=== PATIENT | female | born 1995 | race Caucasian/White ===

== ENCOUNTER 2025-01-06 02:38 | Day surgery (SDC) | payer OTHER, SELFPAY ==
[2024-12-30 11:09] VITALS: BMI 35.5
--- NOTE | 2024-12-30 11:15 | PC.NURSE ---
Report to the Outpatient Waiting Room, entrance under the green pavilion located off [facility], at time _0730__ on date _01/06/25_. Planned Procedure Time: _929_.? Time changes happen often and if your time is changed the preop area will call you the afternoon before. - You and your visitor will be asked to self-screen and do not enter if you have any COVID symptoms. Please call surgeon if you need to reschedule. - A mask is optional within the hospital at this time. Patients may have clear liquids (water, carbonated beverages, clear teas, apple juice) until 3 hours prior to surgery with a maximum of 20 ounces. - No food from midnight until time of surgery and no smoking, or chewing tobacco (or any form of nicotine). No chewing gum, candy or mints. - Infants may have breast milk until 4 hours before surgery, infant formula 6 hours prior to surgery. - Children will be allowed to drink immediately following surgery.? If applicable, please bring a bottle or sippy cup to assist with drinking. Juice, water, soda, and popsicles are readily available.? For infants on formula, please bring formula the day of surgery.? Pacifiers are allowed. Take only the following medications with a SIP of water on the morning of surgery: NONE DO NOT STOP ANY OF YOUR OTHER PRESCRIPTION MEDICATIONS PRIOR TO SURGERY EXCEPT THE FOLLOWING Hold all vitamins and supplements for 3 days per anesthesiologist. Medications to discontinue per physician Date to take last dose Please no make-up, nail lao, hairspray, perfume, deodorant, or body powder the day of surgery.? No jewelry (including any body piercings) or valuables the day of surgery, leave them at home.? Please take a shower or bath the night before, or the morning of, surgery with an antibacterial soap.? Wear comfortable, loose fitting clothing.? Children are encouraged to wear pajamas. - Jewelry must be removed prior to entering the operating room.? Rings and piercings that are not removed may be cut off. - The hospital will not accept responsibility for valuables.? - Please leave all valuables, including medications, at home the day of surgery. If you are going home after surgery, a licensed regional truck driver must drive you home.? - NO public transportation without another adult if you receive anesthesia. - We recommend that an adult stay with you for 24 hours following discharge. - We also recommend that you do not drive, make important decision, drink alcoholic beverages, or take any drugs that were not prescribed by your health care provider for at least 24 hours after your discharge time. For Pediatric surgeries, we recommend two adults accompany the child home. Follow any additional instructions given to you from your surgeon. Telephone instructions given to and asked if any additional questions and then verbalized understanding. Patient advised to call surgeon office or pre surgery nurse liaison [phone] if any additional questions.
--- NOTE | 2024-12-30 11:20 | PC.NURSE ---
Report to the Outpatient Waiting Room, entrance under the green pavilion located off [facility], at time 0730_ on date 01/06/25 __. Planned Procedure Time: _0930_.? Time changes happen often and if your time is changed the preop area will call you the afternoon before. - You and your visitor will be asked to self-screen and do not enter if you have any COVID symptoms. Please call surgeon if you need to reschedule. - A mask is optional within the hospital at this time. Patients may have clear liquids (water, carbonated beverages, clear teas, apple juice) until 3 hours prior to surgery with a maximum of 20 ounces. - No food from midnight until time of surgery and no smoking, or chewing tobacco (or any form of nicotine). No chewing gum, candy or mints. - Infants may have breast milk until 4 hours before surgery, infant formula 6 hours prior to surgery. - Children will be allowed to drink immediately following surgery.? If applicable, please bring a bottle or sippy cup to assist with drinking. Juice, water, soda, and popsicles are readily available.? For infants on formula, please bring formula the day of surgery.? Pacifiers are allowed. Take only the following medications with a SIP of water on the morning of surgery: __NONE DO NOT STOP ANY OF YOUR OTHER PRESCRIPTION MEDICATIONS PRIOR TO SURGERY EXCEPT THE FOLLOWING Hold all vitamins and supplements for 3 days per anesthesiologist. Medications to discontinue per physician SEMIGLUTIDE Date to take last dose 12/29/24 Please no make-up, nail mohawk, hairspray, perfume, deodorant, or body powder the day of surgery.? No jewelry (including any body piercings) or valuables the day of surgery, leave them at home.? Please take a shower or bath the night before, or the morning of, surgery with an antibacterial soap.? Wear comfortable, loose fitting clothing.? Children are encouraged to wear pajamas. - Jewelry must be removed prior to entering the operating room.? Rings and piercings that are not removed may be cut off. - The hospital will not accept responsibility for valuables.? - Please leave all valuables, including medications, at home the day of surgery. If you are going home after surgery, a licensed solid waste truck driver must drive you home.? - NO public transportation without another adult if you receive anesthesia. - We recommend that an adult stay with you for 24 hours following discharge. - We also recommend that you do not drive, make important decision, drink alcoholic beverages, or take any drugs that were not prescribed by your health care provider for at least 24 hours after your discharge time. For Pediatric surgeries, we recommend two adults accompany the child home. Follow any additional instructions given to you from your surgeon. Telephone instructions given to _PATIENT _and asked if any additional questions and then verbalized understanding. Patient advised to call surgeon office or pre surgery nurse liaison [phone] if any additional questions.
[2025-01-06] VITALS (8 sets, daily range): BP systolic 99–130; BP diastolic 57–83; PULSE 84–93; RESP 16–20; TEMP 36.1–36.6; O2SAT 94–98; BMI 35.5
--- OUTSIDE RECORDS SUMMARY | 2025-01-06 02:42 | XMS_ITS | Encounter Summary ---
Author Organization [facility] Address [address] [place] [address] Phone Care Team Providers Care Senior Sharepoint Developer Name Role Phone Xenia Stringer APRN, MANAGER SYSTEMS Primary Care Provider Mitchell Merchant Primary Care Provider [phone] Alessandra Chapa APRN, MANAGER SYSTEMS Unavailable Reason for Visit * Reason Comments Medication Refill Encounter Details Date Type Department Care Team (Late st Contact Info) Description 12/06/2021 Refill [facility] - Primary Care - [place] [address] [place] [address] Xenia Stringer APRN, MANAGER SYSTEMS [address] [place] [address] Medication Refill Social History Tobacco Use Types Packs/Day Years Used Date Smoking Tobacco: Every Day Cigarettes 1 8.2 Started: 11/01/2016 Smokeless Tobacco: Never Comments:vaps Alcohol Use Standard Drinks/Week Comments Yes 0 (1 standard drink = 0.6 oz pur e alcohol) 2x monthly; liq PHQ-2 Answer Date Recorded Total Score - Questions 1-9 12 06/02 Sexually Active Control Partners Comments Not Currently Condom Male Comments No Sex and Gender Information Value Date Recorded Sex Assigned at Not on file Legal Sex Female 11:55 PM CDT Gender Identity Not on file Sexual Orientation Not on file 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 Requested Prescriptions Pending Prescriptions Disp Refills acyclovir (ZOVIRAX) 400 MG Tablet [Pharmacy Med Name: ACYCLOVIR 400MG TABLETS] 60 Tablet 6 Sig: TAKE 1 TABLET BY MOUTH TWICE DAILY Not Delegated - Herpes Agents Protocol Failed - 12/06/2021 6:13 AM Failed - This refill cannot be delegated Passed - Visit with relevant provider in past 12 months or upcoming 90 days Recent Visits Date Type Provider Dept 03/15/21 Office Visit Xenia Stringer APRN, MANAGER SYSTEMS [facility] Showing recent visits within past 365 days and meeting all other requirements Future Appointments No visits were found meeting these conditions. Showing future appointments within next 90 days and meeting all other requirements documented in this encounter Plan of Treatment Upcoming Encounters Date Type Department Care Team (Late st Contact Info) Description 11/09/2025 3:45 PM CDT Office Visit [facility] - Primary Care - [place] [address] [place] [address] Mitchell Merchant, LOREN [address] [place] [address] documented as of this encounter Visit Diagnoses Diagnosis Herpes simplex Herpes simplex without mention of complication documented in this encounter Additional Health Concerns Assessment Noted Time PHQ-9 Depression Total Score: 12 06/21/ 020 10:00 AM PRIVATE INVESTIGATOR SURVEILLANCE documented as of this encounter Care Teams Senior Sharepoint Developer Relationship Specialty Start Date End Date Xenia Stringer APRN, MANAGER SYSTEMS [address] [place], [place] [id number] PCP - General Advanced Practice Nurse 05/16/19 Mitchell Merchant, PAC [address] [place] [address] PCP - General Physician Chief Underwriter 04/18/23 Alessandra Chapa APRN, MANAGER SYSTEMS [address] [place] [address] Nurse Practitioner Advanced Practice Nurse 08/22/22 documented as of this encounter
--- OUTSIDE RECORDS SUMMARY | 2025-01-06 02:42 | XMS_ITS | Encounter Summary ---
Author Organization [facility] Address [address] [place] [address] Phone Care Team Providers Care Certified Solid Waste Facility Operator Name Role Phone Xenia Stringer APRN, DIE EQUIPMENT OPERATOR Primary Care Provider Mitchell Merchant Primary Care Provider [phone] Alessandra Chapa APRN, DIE EQUIPMENT OPERATOR Unavailable Reason for Visit * Reason Comments Medication Refill Encounter Details Date Type Department Care Team (Late st Contact Info) Description 10/19/2022 Refill [facility] - Primary Care - [place] [address] [place] [address] Xenia Stringer APRN, DIE EQUIPMENT OPERATOR [address] [place] [address] Medication Refill Social History Tobacco Use Types Packs/Day Years Used Date Smoking Tobacco: Every Day Cigarettes 1 8.2 Started: 11/01/2016 Smokeless Tobacco: Never Comments:vaps Alcohol Use Standard Drinks/Week Comments Yes 0 (1 standard drink = 0.6 oz pur e alcohol) 2x monthly; liq PHQ-2 Answer Date Recorded Total Score - Questions 1-9 9 08/31 Sexually Active Control Partners Comments Not Currently Condom Male Comments No Sex and Gender Information Value Date Recorded Sex Assigned at Not on file Legal Sex Female 11:55 PM CDT Gender Identity Not on file Sexual Orientation Not on file 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 No / Unsure 10/03/2022 3:04 PM CDT documented as of this encounter Miscellaneous Notes * Telephone Encounter - Abigail Ramirez RN - 10/19/2022 10:15 AM CDT Medication discontinued 09/27/22 documented in this encounter Plan of Treatment Upcoming Encounters Date Type Department Care Team (Late st Contact Info) Description 11/09/2025 3:45 PM CDT Office Visit [facility] - Primary Care - [place] [address] [place] [address] Mitchell Merchant PAC [address] [place] [address] documented as of this encounter Visit Diagnoses Not on filedocumented in this encounter Additional Health Concerns Assessment Noted Time PHQ-9 Depression Total Score: 9 09/28/19 23 3:00 PM CDT documented as of this encounter Care Teams Certified Solid Waste Facility Operator Relationship Specialty Start Date End Date Xenia Stringer APRN, DIE EQUIPMENT OPERATOR [address] [place], [place] [id number] PCP - General Advanced Practice Nurse 05/16/19 Mitchell Merchant PAC [address] [place] [address] PCP - General Physician Conveyor Installer 04/18/23 Alessandra Chapa APRN, DIE EQUIPMENT OPERATOR [address] [place] [address] Nurse Practitioner Advanced Practice Nurse 08/22/22 documented as of this encounter
--- OUTSIDE RECORDS SUMMARY | 2025-01-06 02:42 | XMS_ITS | Encounter Summary ---
Author Organization [facility] Address [address] [place] [address] Phone Care Team Providers Care Collective Bargaining Specialist Name Role Phone Xenia Stringer APRN, ASSISTANT PROPERTY MANAGER Primary Care Provider Mitchell Merchant Primary Care Provider [phone] Alessandra Chapa APRN, ASSISTANT PROPERTY MANAGER Unavailable Reason for Visit * Reason Comments Medication Refill Encounter Details Date Type Department Care Team (Late st Contact Info) Description 02/09/2022 Refill [facility] - Primary Care - [place] [address] [place] [address] Xenia Stringer APRN, ASSISTANT PROPERTY MANAGER [address] [place] [address] Medication Refill Social History Tobacco [...] 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 Requested Prescriptions Pending Prescriptions Disp Refills albuterol 108 (90 Base) MCG/ACT Aerosol Solution [Pharmacy Med Name: ALBUTEROL HFA INH(200 PUFFS)18GM] 18 g 0 Sig: INHALE 2 PUFFS BY MOUTH EVERY 4 HOURS NEEDED FOR WHEEZING OR COUGH Short Acting Inhaled Beta-Agonists Protocol Passed - 02/09/2022 12:20 PM Passed - Visit with relevant provider in past 12 months or upcoming 90 days Recent Visits Date Type Provider Dept 03/15/21 Office Visit Xenia Stringer APRN, ASSISTANT PROPERTY MANAGER [facility] Showing recent visits within past 365 days and meeting all other requirements Future Appointments No visits were found meeting these conditions. Showing future appointments within next 90 days and meeting all other requirements documented in this encounter Plan of Treatment Upcoming Encounters Date Type Department Care Team (Late st Contact Info) Description 11/09/2025 3:45 PM CDT Office Visit [facility] - Primary Care - [place] [address] [place] [id number] Mitchell Merchant, PAC [address] [place] [address] documented as of this encounter Visit Diagnoses Diagnosis SOB (shortness of breath) Shortness of breath Wheezing documented in this encounter Additional Health Concerns Assessment Noted Time PHQ-9 Depression Total Score: 12 020 10:00 AM MANAGER DIALYSIS documented as of this encounter Care Teams Collective Bargaining Specialist Relationship Specialty Start Date End Date Xenia Stringer APRN, ASSISTANT PROPERTY MANAGER [address] [place] [place] [id number] PCP - General Advanced Practice Nurse 05/16/19 Mitchell Merchant, PAC [address] [place] [address] PCP - General Physician Supervisor Tumblers 04/18/23 Alessandra Chapa, INVESTMENTS MANAGER, ASSISTANT PROPERTY MANAGER [address] [place] [address] Nurse Practitioner Advanced Practice Nurse 08/22/22 documented as of this encounter
--- OUTSIDE RECORDS SUMMARY | 2025-01-06 02:42 | XMS_ITS | Encounter Summary ---
Author Organization [facility] Address [address] [place] [address] Phone Care Team Providers Care Contracting Manager Name Role Phone Xenia Stringer APRN, STONE DRESSER Primary Care Provider Mitchell Merchant Primary Care Provider [phone] Alessandra Chapa APRN, STONE DRESSER Unavailable Reason for Visit * Reason Comments Medication Refill Encounter Details Date Type Department Care Team (Late st Contact Info) Description 02/08/20[facility] [address] [place] [address] Alessandra Chapa APRN, STONE DRESSER [address] [place] [address] Medication Refill Social History Tobacco Use Types [...] 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 No / Unsure 02/03/2021 1:14 PM CDT documented as of this encounter Plan of Treatment Upcoming Encounters Date Type Department Care Team (Late st Contact Info) Description 11/09/2025 3:45 PM CDT Office Visit [facility] - Primary Care - [place] [address] [place] [address] Mitchell Merchant PAC [address] [place] [address] documented as of this encounter Visit Diagnoses Diagnosis SOB (shortness of breath) Shortness of breath Wheezing documented in this encounter Additional Health Concerns Assessment Noted Time PHQ-9 Depression Total Score: 12 020 10:00 AM CUTTER TENDER documented as of this encounter Care Teams Contracting Manager Relationship Specialty Start Date End Date Xenia Stringer APRN, STONE DRESSER [address] [place], [place] [id number] PCP - General Advanced Practice Nurse 05/16/19 Mitchell Merchant PAC [address] [place] [address] PCP - General Physician Arcade Technician 04/18/23 Alessandra Chapa APRN, STONE DRESSER [address] [place] [address] Nurse Practitioner Advanced Practice Nurse 08/22/22 documented as of this encounter
--- OUTSIDE RECORDS SUMMARY | 2025-01-06 02:42 | XMS_ITS | Encounter Summary ---
Author Organization [facility] Address [address] [place] [address] Phone Care Team Providers Care Patient Care Technician Name Role Phone Xenia Stringer APRN, LEAD DATA ENTRY OPERATOR Primary Care Provider Mitchell Merchant Primary Care Provider Alessandra Chapa APRN, LEAD DATA ENTRY OPERATOR Unavailable Reason for Visit * Reason Comments Medication Refill Encounter Details Date Type Department Care Team (Late st Contact Info) Description 01/08/2021 Refill [facility] - Primary Care - [place] [address] [place] [address] Xenai Stringer APRN, LEAD DATA ENTRY OPERATOR [address] [place] [address] Medication Refill Social History Tobacco Use Types Packs/Day Years Used Date Smoking Tobacco: Every Day Cigarettes 1 8.2 Started: 11/01/2016 Smokeless Tobacco: Never Comments:vaps Alcohol Use Standard Drinks/Week Comments Yes 0 (1 standard drink = 0.6 oz pur e alcohol) rarely once a month PHQ-2 Answer Date Recorded Total Score - Questions 1-9 12 06/02 Sexually Active Control Partners Comments Not Currently Condom Male Comments No Sex and Gender Information Value Date Recorded Sex Assigned at Not on file Legal Sex Female 11:55 PM CDT Gender Identity Not on file Sexual Orientation Not on file 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 Requested Prescriptions Pending Prescriptions Disp Refills atomoxetine (STRATTERA) 25 MG Capsule [Pharmacy Med Name: ATOMOXETINE 25MG CAPSULES] 90 Capsule 0 Sig: Take 1 Capsule by mouth daily. [email or web address] Not Delegated - Psychiatry: Stimulants/ADHD Failed - 01/10/2021 1:29 PM Failed - This refill cannot be delegated Passed - Valid encounter within last 6 months Past Office Visits Recent Outpatient Visits 4 months ago Disturbed concentration [facility] Xenia Stringer APN, LEAD DATA ENTRY OPERATOR 6 months ago Tinea cruris [facility] Xenia Stringer APN, LEAD DATA ENTRY OPERATOR 10 months ago Abnormal facial hair [facility] Xenia Stringer APN, LEAD DATA ENTRY OPERATOR 11 months ago SOB (shortness of breath) [facility] Brett Delgado PAC 1 year ago Vaginal discharge [facility] Xenia Stringer APN, LEAD DATA ENTRY OPERATOR Upcoming Appointments SOCIAL MEDIA SPECIALIST - Recent and Past Visits Recent Visits Date Type Provider Dept 08/30/20 Office Visit Xenia Stringer APN, CNP [facility] 06/21/20 Office Visit Xenia Stringer APN, CNP [facility] 03/01/20 Office Visit Xenia Stringer APN, ELEUTERIO [facility] 01/28/20 Office Visit Brett Delgado, PAC [facility] Showing recent visits within past 460 days with a meds authorizing provider and meeting all other requirements Future Appointments No visits were found meeting these conditions. Showing future appointments within next 90 days with a meds authorizing provider and meeting all other requirements Passed - Last BP in normal range BP Readings from Last 1 Encounters: 08/30/20 122/78 documented in this encounter Plan of Treatment Upcoming Encounters Date Type Department Care Team (Late st Contact Info) Description 11/09/2025 3:45 PM CDT Office Visit [facility] - Primary Care - [place] [address] [place] [phone] Mitchell Merchant PAC [address] [place] [address] documented as of this encounter Visit Diagnoses Not on filedocumented in this encounter Additional Health Concerns Assessment Noted Time PHQ-9 Depression Total Score: 12 020 10:00 AM HEEL SEWER documented as of this encounter Care Teams Patient Care Technician Relationship Specialty Start Date End Date Xenia Stringer APRN, LEAD DATA ENTRY OPERATOR [address] [place], [place] [id number] PCP - General Advanced Practice Nurse 05/16/19 Mitchell Merchant PAC [address] [place] [address] PCP - General Physician Refrigeration Lead 04/18/23 Alessandra Chapa APRN, LEAD DATA ENTRY OPERATOR [address] [place] [address] Nurse Practitioner Advanced Practice Nurse 08/22/22 documented as of this encounter
--- OUTSIDE RECORDS SUMMARY | 2025-01-06 02:42 | XMS_ITS | Data Portability ---
Author Organization [facility] Address [address] [place] [address] Care Team Providers Care Transfer Iron Operator Name Role Phone [email or web address] Primary Care Provider Assessment No assessment recorded. Plan of Treatment Reminders Order Date Submit Date Provider Last Modified By Organization Details Last Modified Time Details Appointments SURG Salpingec odell 2024 09:30A Tio LEVI MD Not available Not available Not available SURG POST OP 2024 03:00P Tio LEVI MD Not available Not available Not available Lab None recorded. Referral None recorded. Procedures None recorded. Surgeries None recorded. Imaging None recorded. Medication Orders Slynd 4 mg (28) tablet 2023 07 024 [id number], [address] [place] [address], [id number], 01/07/2024 16:48:04 Patient TargetsNo targets recorded. Patient InstructionsNo instructions recorded. Reason for Referral None Reported. Results Created Date Observation Date Name Description Value Unit Range Abnormal Flag Note LastModifiedBy Organization Detail LastModifiedTime 04/09/2004/09/2024 WOMEN 'S HEALT H SWAB PLUS, [place] bacterial vaginosis (bv), tma Positi ve negati ve abnormal Not Available [facility] (Lab) [address], [place], [address], 04/11/2024 07:38:52 04/09/2004/09/2024 WOMEN 'S HEALT H SWAB PLUS, [place] anita species, tma Negati ve negati ve Not Available [facility] (Lab) [address] [place], [address], 04/11/2024 07:38:52 04/09/20 24 04/09/2024 [facility] anita glabrata, tma Negati ve negati ve Not Available [facility] (Lab) [address] [place], [address], 04/11/2024 07:38:52 04/09/20 24 04/09/2024 [facility] trichomonas vaginalis, tma Negati ve negati ve Not Available [facility] (Lab) [address], [place], [address], 04/11/2024 07:38:52 04/09/20 24 04/09/2024 [facility] chlamydia trachomatis, PCR Negati ve negati ve Not Available [facility] (Lab) [address] [place], [address], 04/11/2024 07:38:52 04/09/20 24 04/09/2024 [facility] [place] neisseria gonorrhoeae, PCR Negati ve negati ve Bacte rial vagin osis detec ts the follo wing bacte elton assoc iated with bacte rial vagin osis (BV): Lacto bacil an (L. gasse ri, L. crisp atus and L. jense landen), Gardn erell a vagin luciano, and Atopo bium vagin ae. A singl e quali tativ e resul t is repor marko base on instr ument softw are to deter mine BV posit enrike or negat enrike statu s. The Karlie da speci es group tests for C. albic ans, C. tropi calis , C. parap davina is, C. dubli niens is. Testi ng is perfo rmed using the Trans cript ion Media marko Ampli ficat ion metho d. Tests for Karlie da glabr frankie, Trich omona s vagin luciano, Chlam ydia trach omati s, and Neiss eria gonor rhoea e are also inclu ded in this panel . Not Available [facility] (Lab) [address], [place], [address], 04/11/2024 07:38:52 Result Notes None recorded. Medical Equipment None Reported. Allergies No known drug allergies Medications Name Sig Start Date Stop Date Status Note LastModified by Organization Details LastModified Time fluconazole 150 mg tablet TAKE 1 TABLET BY MOUTH AT ONSET OF SYMPTOMS. MAY REPEAT DOSE IN 2-3 DAYS IF STILL PRESENT 10/27 completed Not Available Not Available Not Available benzonatate 200 mg capsule TAKE 1 CAPSULE BY MOUTH THREE TIMES DAILY NEEDED FOR COUGH 01/06 completed Not Available Not Available Not Available metronidazo le 0.75 % (37.5 mg/5 gram) vaginal gel Insert 1 applicato rful every day by vaginal route for 5 days. 04/14 completed Not Available Not Available Not Available topiramate 25 mg tablet TAKE 1 TABLET BY MOUTH TWICE DAILY 10/27 completed Not Available Not Available Not Available metronidazo le 500 mg tablet TAKE 1 TABLET BY MOUTH TWICE DAILY FOR 7 DAYS 10/27 completed Not Available Not Available Not Available fluocinonid e 0.05 % topical ointment APPLY TO AFFECTED AREA TWICE DAILY ON HANDS active Not Available Not Available No t Available acyclovir 400 mg tablet TAKE 1 TABLET BY MOUTH TWICE DAILY active Not Available Not Available No t Available sulfamethox azole 800 mg-trimetho prim 160 mg tablet TAKE 1 TABLET BY MOUTH TWICE DAILY FOR 7 DAYS 01/06 completed Not Available Not Available Not Available triamcinolo ne acetonide 0.1 % topical cream APPLY SMALL AMOUNT TOPICALLY TO THE AFFECTED AREA TWICE DAILY FOR 14 DAYS active Not Available Not Available No t Available econazole nitrate 1 % topical cream APPLY TO RASH UNDER BREASTS AND GROIN FOLDS ONCE TO TWICE DAILY active Not Available Not Available No t Available triamcinolo ne acetonide 0.1 % topical ointment APPLY EXTERNALL Y TO THE AFFECTED AREA ON CHEST THINLY TWICE DAILY active Not Available Not Available No t Available mometasone 0.1 % topical ointment APPLY TO THE AFFECTED AREA ON HANDS TWICE DAILY active Not Available Not Available No t Available albuterol sulfate HFA 90 mcg/actuati on aerosol inhaler INHALE 2 PUFFS BY MOUTH EVERY 4 HOURS NEEDED FOR WHEEZING OR COUGH active Not Available Not Available No t Available sertraline 50 mg tablet TAKE 1 TABLET BY MOUTH DAILY active Not Available Not Available No t Available doxycycline hyclate 100 mg tablet TAKE 1 TABLET BY MOUTH EVERY 12 HOURS 10/27 completed Not Available Not Available Not Available Aurovela 24 Fe 1 mg-20 mcg (24)/75 mg (4) tablet 10/27 completed Not Available Not Available Not Available Slynd 4 mg (28) tablet TAKE 1 TABLET BY MOUTH EVERY DAY 2024 active Not Available Not Available Not Avai hernan Vitals Date Recorded Body height Body mass index (BMI) Body weight Systolic And Diastolic Provider Name and Address Organization Details Last Updated DateTime 10/27/2024 157.48 cm 38.2 kg/m2 46236.81 g 121/73 mm[Hg] Bibi Heck [facility] 10/27/2024 17:37:14 Date Recorded Body height Body mass index (BMI) Body weight Systolic And Diastolic Provider Name and Address Organization Details Last Updated DateTime 01/07/2024 157.48 cm 40.1 kg/m2 21227.73 g 135/85 mm[Hg] Annemarie Rubio [facility] 01/07/2024 15:38:40 Date Recorded Body height Body mass index (BMI) Body weight Systolic And Diastolic Provider Name and Address Organization Details Last Updated DateTime 04/09/2024 157.48 cm 41.2 kg/m2 342483 g 127/85 mm[Hg] Ana Laura Snow [facility] 04/09/2024 16:25:05 Social History Question Answer Notes LastModified by Organizat ion Details LastModified Time Tobacco Smoking Status Never Smoker Annemarie Rubio [facility] 01/07/2024 14:09:41 Are You Blind Or Do You Have Difficulty Seeing? No [email or web address] Information n ot available 01/14/2024 What Is Your Level Of Caffeine Consumption? Moderate [email or web address] Information not available 01/14/2024 How Much Tobacco Do You Chew? None [email or web address] Information not available 01/14/2024 In The 14 Days Before Symptom Onset, Have You Had Close Contact With A Laboratory-confirm ed COVID-19 While That Case Was Ill? No Information n ot available 01/07/2024 In The 14 Days Before Symptom Onset, Have You Had Close Contact With A Person Who Is Under Investigation For COVID-19 While That Person Was Ill? No Information not available 01/07/2024 Have You Been To An Area Known To Be High Risk For COVID-19? No Information not available 01/07/2024 Are You Deaf Or Do You Have Serious Difficulty Hearing? No [email or web address] Information not available 01/14/2024 What Type Of Diet Are You Following? REGULAR [email or web address] Information n ot available 01/14/2024 What Is The Highest Grade Or Level Of School You Have Completed Or The Highest Degree You Have Received? [id number] [email or web address] Information not available 01/14/2024 Are There Any Guns Present In Your Home? No [email or web address] Information not available 01/14/2024 Do You Use Protection During Sex? No [email or web address] Information not available 01/14/2024 Do You Use Your Seat Belt Or Car Seat Routinely? Yes [email or web address] Information not available 01/14/2024 Do You Have Smoke And Carbon Monoxide Detectors In Your Home? Yes [email or web address] Information not available 01/14/2024 How Much Tobacco Do You Smoke? No Information not available 01/14/2024 Do You Use Sunscreen Routinely? Yes [email or web address] Information not available 01/14/2024 Have You Used IV Drugs? Yes Information not available 01/14/2024 Sex: Unknown Functional Status Question Answer Note LastModified by Organizat ion Details LastModified Time Do you use any illicit or recreational drugs? No Information not available 01/14/2024 What is your level of alcohol consumption? None [email or web address] Information not available 01/14/2024 Are you able to walk? 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 None [email or web address] Information not available 01/14/2024 Mental Status Question Answer Note LastModified by Organization D etails LastModified Time Do you feel stressed (tense, restless, nervous, or anxious, or unable to sleep at night)? [id number] [email or web address] Information not available 01/14/2024 Family History Relationship Description Onset Age of this Age Resolved Age Notes LastModified by Organization Details LastModified Time Father Diabetes mellitus [email or web address] Not available 2023 15:42:10 Medical History Condition Response Anxiety Disorder Y Other Y Headaches Y Depression/ depression Y Gynecological History Statement/Question Response Date of Last Mammogram Date of LMP 11/27/2023 N Was last menstrual period normal Y STIs/STDs Y Date of control 10/10/2023 Date of Last Colonoscopy BCPs Desired Control Method Sterilizati on Abnormal Pap N On BCP's at Conception? N Colposcopy HPV Vaccine Y Duration of Flow (days) 6 Current Control Method BCPs Age at First Child 26 Are cycles usually normal Y Sexually Active? Y Menses Monthly Y Date of DEXA bone scan Age of first menstrual cycle 14 Date of Last Pap Smear Sexual Problems? N LMP Approximate N Obstetrics History GPAL:G 3 P 0 0 1 2 Type Value Spontaneous 1 Living 2 Total 3 Past Encounters Encounter ID Performer Location Encounter Start Date Encounter Closed Date Diagnosis/Indication Diagnosis SNOMED-CT Code Diagnosis ICD10 Code Diagnosis Note [id number] DAYRON Ramsay [place] [address] [address] 01/07/2024 15:29:15 01/07/2024 16:55:04 Contraception care management 240728193 Z30.9 Detailed health hx obtained and reviewedal l BC options discusseds he would like to start slynd Discussed all control options in great detail. Pt would like to start POP. She is aware of the risks and benefits. She is aware it is not effective for control the first month. She is also aware of the importance of taking at the same time every day. Encouraged use of condoms as the pill does not protect against STI's. Will return in 3 months for med check. Consent was read and signed. Pt verbalized understand ing. Pt aware of potential decrease effectiven ess of POP in combinatio n with topiramate , recommend condom use. records release signed for pap hxSTI screen declinedRT C for WWE/med check in 3-4 months Time spent in visit is a total of 20 mins with at least 50% of visit consisting of counseling and review of plan of care. [id number] Collins Levi MD [place] [address] [address] 04/09/2024 15:58:39 04/09/2024 17:05:12 Contraception care management 309429205 Z30.9 28-year-ol d female who presents for follow-up on oral contracept enrike start. She is taking Slynd. She is doing well. She is tolerating it well. She is not having any bleeding. She will continue. She was given a prescripti on for 1 year. [id number] Collins Levi MD [place] [address] [address] 10/27/2024 16:30:27 10/28/2024 10:11:57 Sterilization education [id number] Z30.09 This patient presents for female sterilizat ion. The patient desires tubal ligation. She is certain that she no longer wants to be fertile. We discussed sterilizat ion in detail. I described the procedure to the patient in detail. I informed her that we remove the tubes entirely in a. We discussed alternativ es. The patient knows they are highly effective reversible options. She understand s that the Salpingect lindsay n is permanent. We discussed failure rate. She understand s there is reported failure rate to salpingect lindsay.. As described salpingect lindsay and removal of the entire tube. I discussed the reduction in ovarian cancer risk. The patient understand s and is ready to proceed with laparoscop ic bilateral salpingect lindsay.. She return for informed consent process. Her surgery will be scheduled. Health Concerns Section Related Observation LastModified by Organization Detai ls LastModified Time None Recorded Concern Status LastModified by Organization Details LastModified Time None Recorded Advance Directives Directive None Recorded Payers Insurance Date Sequence Insurance Name Policy Number Policy Childs Covered Member ID Childs Member ID Guarantor Name 01/04/2025 1 [facility] (MEDICAID HMO) [id number] Alley Nicholas [id number] Alley Nicholas Notes Date Note Type Note Provider Name and Address Organization Details Recorded Time 01/07/2024 text/html 28yo [id number] ents for BC consults/p vaginal delivery 08/2023formula feedingcurrently on an OCP - would like to discuss all her options todaypap smear last 2022 - no h/o abnormal paps medical hx : migraines w/out aura DAYRON Ramsay [address], [place], [address], [facility] 01/07/2024 16:51:42 04/09/2024 text/html Vaginal/Vulvar ProblemReported bypatient.Notes:28-ye ar-old female who presents for follow-up on oral contraceptive start. She is taking Slynd. She is doing well. She is tolerating it well. She is not having any bleeding. She will continue. She was given a prescription for 1 year. Collins Levi MD [address], [place], [address], [facility] 04/09/2024 16:59:32 10/27/2024 text/html This patient pre sents for female sterilization. The patient desires tubal ligation. She is certain that she no longer wants to be fertile. We discussed sterilization in detail. I described the procedure to the patient in detail. I informed her that we remove the tubes entirely in a. We discussed alternatives. The patient knows they are highly effective reversible options. She understands that the Salpingectomy n is permanent. We discussed failure rate. She understands there is reported failure rate to salpingectomy.. As described salpingectomy and removal of the entire tube. I discussed the reduction in ovarian cancer risk. The patient understands and is ready to proceed with laparoscopic bilateral salpingectomy.. She return for informed consent process. Her surgery will be scheduled. Collins Levi MD [address], [place], [address], [facility] 10/27/2024 18:18:39 OBGyn Episode Ob Episode Information Episode Created Date Number of Fetuses Patient Bloodtype Patient rh Status Prepregnancy Weight lbs Domestic Partner Domestic Partner Phone Father Name Medical Assisting Program Director Status 01/07/20 24 1 CLOSED Fetus Data First Name Last Name Admitted to NICU Weight (g) Sex Living Outcome Pediatric Complications Fetus ID Race Codes Race Delivery Type F Full Term [id number] Vaginal Delivery Obie Calculation Initial Obie Date Initial Exam Date Initial Exam Provider Initial Ultrasound Date Last Menstrual Period Date Ultra Sound Weeks Gestation 0 Eighteen To Twenty Week Obie Update Ultra Sound Date Fundal Height At Umbil Quickening Date Ultra Sound Latest Weeks Gestation Final Obie Confirmed By Final Obie Confirmed Date Final Obie Date Ultra Sound Latest Days Gestation 0 0 Menstrual History Last Menstrual Date Menses Monthly On Bcp Conception Prior Menses Frequency Hcg Plus Date Menarche Onset Age Delivery Information Delivery Date Delivery Type Labor Anesthesia Weeks Gestation Incision Type Labor Labor Length Hrs Delivered By Post Complications Tubal Sterilization Discharge Date Comments 2 Discharge Information Feeding Method Contraceptive Method Maternal HG B and HCT Levels Ob Episode Information Episode Created Date Number of Fetuses Patient Bloodtype Patient rh Status Prepregnancy Weight lbs Domestic Partner Domestic Partner Phone Father Name Medical Assisting Program Director Status 01/07/20 24 1 CLOSED Fetus Data First Name Last Name Admitted to NICU Weight (g) Sex Living Outcome Pediatric Complications Fetus ID Race Codes Race Delivery Type , Spontane ous [id number] Obie Calculation Initial Obie Date Initial Exam Date Initial Exam Provider Initial Ultrasound Date Last Menstrual Period Date Ultra Sound Weeks Gestation 0 Eighteen To Twenty Week Obie Update Ultra Sound Date Fundal Height At Umbil Quickening Date Ultra Sound Latest Weeks Gestation Final Obie Confirmed By Final Obie Confirmed Date Final Obie Date Ultra Sound Latest Days Gestation 0 0 Menstrual History Last Menstrual Date Menses Monthly On Bcp Conception Prior Menses Frequency Hcg Plus Date Menarche Onset Age Delivery Information Delivery Date Delivery Type Labor Anesthesia Weeks Gestation Incision Type Labor Labor Length Hrs Delivered By Post Complications Tubal Sterilization Discharge Date Comments 5 Discharge Information Feeding Method Contraceptive Method Maternal HG B and HCT Levels Ob Episode Information Episode Created Date Number of Fetuses Patient Bloodtype Patient rh Status Prepregnancy Weight lbs Domestic Partner Domestic Partner Phone Father Name Medical Assisting Program Director Status 01/07/20 24 1 CLOSED Fetus Data First Name Last Name Admitted to NICU Weight (g) Sex Living Outcome Pediatric Complications Fetus ID Race Codes Race Delivery Type M Full Term [id number] Vaginal Delivery Obie Calculation Initial Obie Date Initial Exam Date Initial Exam Provider Initial Ultrasound Date Last Menstrual Period Date Ultra Sound Weeks Gestation 0 Eighteen To Twenty Week Obie Update Ultra Sound Date Fundal Height At Umbil Quickening Date Ultra Sound Latest Weeks Gestation Final Obie Confirmed By Final Obie Confirmed Date Final Obie Date Ultra Sound Latest Days Gestation 0 0 Menstrual History Last Menstrual Date Menses Monthly On Bcp Conception Prior Menses Frequency Hcg Plus Date Menarche Onset Age Delivery Information Delivery Date Delivery Type Labor Anesthesia Weeks Gestation Incision Type Labor Labor Length Hrs Delivered By Post Complications Tubal Sterilization Discharge Date Comments 4 shoulder dystocia Discharge Information Feeding Method Contraceptive Method Maternal HG B and HCT Levels
--- OUTSIDE RECORDS SUMMARY | 2025-01-06 02:42 | XMS_ITS | Continuity of Care Document ---
Author Organization [facility] Address [address] [place] [address] Phone Care Team Providers Care Roads And Parking Lots Sweeper Operator Name Role Phone Unavailable Unavailable Unavailable Allergies, Adverse Reactions, Alerts Substance Reaction Status Criticality No Known Allergies Active No Inform ation Medications Medication Instructions Dosage Effective Dates (start - stop) Status Comments Tessalon Perles 100 mg capsule take 1 capsule by oral route 3 times every day as needed - Active amoxicillin 500 mg tablet take 1 tablet by oral route every 12 hours 500 MG - No Longer Active Procedures Procedure Date OFFICE/OUTPATIENT VISIT, EST Advance Directives Directive Yes / No Effective Date File Name No Information Encounters Encounter Description Practice Location Reason(s) For Visit Diagnoses Date Provider Providers Copied on Encounter OFFICE/OUTPAT IENT VISIT, [facility], [address] [place] [address], [address], tel:[phone] [place] COUGH (chief complaint)P USS POCKETS ON THROAT (chief complaint)F EVER (chief complaint) Acute bronchitis 4 No Information Family History Family Member Type Diagnosis Age At Onset No Information Payers Payer name Insurance type Covered libertarian ID Authoriza tion(s) No Information Social History Type Description Quantity Date Captured Comments Alcohol Use Details Unknown Caffeine Use Details Unknown Tobacco Use Status Never smoked tobacco 2013 Smoking Status Never smoker Non-Smoking Tobacco Use Details : No Details Available : No Details Available Sex Female Chief Complaint And Reason For Visit From encounter dated '06/23/2014 08:38'. COUGH (chief complaint). Description: Onset: 2 weeks ago. Severity: 5. The patient describes the cough as productive (of clear sputum). Associated symptoms include chills, cough, fatigue, hoarseness and sore throat. PUSS POCKETS ON THROAT (chief complaint). Description: The symptoms began 2 weeks ago and generallylasts 2 Weeks. The symptoms are reported as being moderate. The symptoms occur constantly. Patient has been dealing with white spots on her throat for 2 weeks now. FEVER (chief complaint). Description: Associated symptoms include cough. Additional information: Patient has never taken her temp she just thinks she had a fever. Reason For Referral Reason For Referral No Information History Of Present Illness Encounter Date Complaint History Of Prese nt Illness PUSS POCKETS ON THROAT The sympt oms began 2 weeks ago and generally lasts 2 Weeks. The symptoms are reported as being moderate. The symptoms occur constantly. Patient has been dealing with white spots on her throat for 2 weeks now. COUGH Onset: 2 weeks a go. Severity: 5. The patient describes the cough as productive (of clear sputum). Associated symptoms include chills, cough, fatigue, hoarseness and sore throat. FEVER Associated sympt oms include cough. Additional information: Patient has never taken her temp she just thinks she had a fever. Functional Status Date Functional Assessmen t No Information Instructions Date Instruction Additional Infor mation see plan detail Related to Acute bronchitis Assessments Type Assessment Date assessment Acute bronchitis impression amoxicillin 500mg po bid for 10 days. f/u inext week if not resolving Mental Status Date Cognitive Assessment Orientation - [place] ed to time, place, person, situation. Patient Care Teams Name Effective Dates (start - stop) Status Members No Information
--- OUTSIDE RECORDS SUMMARY | 2025-01-06 02:42 | XMS_ITS | Encounter Summary ---
Author Organization [facility] Address [address] [place] [address] Phone Care Team Providers Care Back Tender Insulation Board Name Role Phone Xenia Stringer APRN, REAL ESTATE PORTFOLIO MANAGER Primary Care Provider Mitchell Merchant Primary Care Provider [phone] Alessandra Chapa APRN, REAL ESTATE PORTFOLIO MANAGER Unavailable Reason for Visit * Reason Comments Medication Refill Encounter Details Date Type Department Care Team (Late st Contact Info) Description 02/12/2021 Refill [facility] - Primary Care - [place] [address] [place] [address] Xenia Stringer APRN, REAL ESTATE PORTFOLIO MANAGER [address] [place] [address] Medication Refill Social History Tobacco [...] Industry Job Start Date Job End Date 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 Not on file Not on file Not on file COVID-19 Exposure Response Date Recorded In the last month, have you been in contact with someone who was confirmed or suspected to have Coronavirus / COVID-19? No / Unsure 02/03/2021 1:14 PM CDT documented as of this encounter Miscellaneous Notes * Telephone Encounter - Rica Aguirre RN - 02/14/2021 1:23 PM CDT The original prescription was discontinued on 02/03/2021 by Marlyn Mcmillan PAC for the following reason: Med List Clean Up documented in this encounter Plan of Treatment Upcoming Encounters Date Type Department Care Team (Late st Contact Info) Description 11/09/2025 3:45 PM CDT Office Visit [facility] - Primary Care - [place] [address] [place] [address] Mitchell Merchant PAC [address] [place] [address] documented as of this encounter Visit Diagnoses Not on filedocumented in this encounter Additional Health Concerns Assessment Noted Time PHQ-9 Depression Total Score: 12 06/21/ 020 10:00 AM LADIES SUIT OPERATOR documented as of this encounter Care Teams Back Tender Insulation Board Relationship Specialty Start Date End Date Xenia Stringer APRN, REAL ESTATE PORTFOLIO MANAGER [address] [place] [address] PCP - General Advanced Practice Nurse 05/16/19 Mitchell Merchant PAC [address] [place] [address] PCP - General Physician Public Health Outreach Worker 04/18/23 Alessandra Chapa APRN, REAL ESTATE PORTFOLIO MANAGER [address] [place] [address] Nurse Practitioner Advanced Practice Nurse 08/22/22 documented as of this encounter
--- OUTSIDE RECORDS SUMMARY | 2025-01-06 02:42 | XMS_ITS | Encounter Summary ---
Author Organization [facility] Address [address] [place] [address] Phone Care Team Providers Care Food Safety Scientist Name Role Phone Xenia Stringer APRN, TOY ASSEMBLER WOOD Primary Care Provider Mitchell Merchant Primary Care Provider Alessandra Chapa APRN, TOY ASSEMBLER WOOD Unavailable Reason for Visit * Reason Comments Medication Refill Encounter Details Date Type Department Care Team (Late st Contact Info) Description 10/08/2022 Refill [facility] - Primary Care - [place] [address] [place] [address] Xenia Stringer APRN, TOY ASSEMBLER WOOD [address] [place] [address] Medication Refill Social History Tobacco [...] 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 No / Unsure 10/03/2022 3:04 PM CDT documented as of this encounter Miscellaneous Notes * Telephone Encounter - Rica Aguirre RN - 10/09/2022 9:20 AM CDT The original prescription was discontinued on 09/27/2022 by Xenia Stringer APRN, ELEUTERIO for the following reason documented in this encounter Plan of Treatment Upcoming Encounters Date Type Department Care Team (Late st Contact Info) Description 11/09/2025 3:45 PM CDT Office Visit [facility] - Primary Care - [place] [address] [place] [address] Mitchell Merchant PAC [address] [place] [address] documented as of this encounter Visit Diagnoses Not on filedocumented in this encounter Additional Health Concerns Assessment Noted Time PHQ-9 Depression Total Score: 9 09/28/19 23 3:00 PM CDT documented as of this encounter Care Teams Food Safety Scientist Relationship Specialty Start Date End Date Xenia Stringer APRN, TOY ASSEMBLER WOOD [address] [place] [address] PCP - General Advanced Practice Nurse 05/16/19 Mitchell Merchant PAC [address] [place] [address] PCP - General Physician Tongue And Groove Machine Operator 04/18/23 Alessandra Chapa APRN, TOY ASSEMBLER WOOD [address] [place] [address] Nurse Practitioner Advanced Practice Nurse 08/22/22 documented as of this encounter
--- OUTSIDE RECORDS SUMMARY | 2025-01-06 02:42 | XMS_ITS | Encounter Summary ---
Author Organization [facility] Address [address] 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 on file Not on file documented as of this encounter Plan of Treatment Upcoming Encounters Date Type Department Care Team (Late st Contact Info) Description 11/09/2025 3:45 PM CDT Office Visit [facility] - Primary Care - [place] [address] [address] Mitchell Merchant PAC [address] [place] [address] documented as of this encounter Visit Diagnoses Diagnosis SOB (shortness of breath) Shortness of breath Wheezing documented in this encounter Additional Health Concerns Assessment Noted Time PHQ-9 Depression Total Score: 12 020 10:00 AM LINE CLOSER documented as of this encounter Care Teams Syrup Filterer Relationship Specialty Start Date End Date Xenia Stringer APRN, TOOL/DIE MAKER [address] [place], [place] [id number] PCP - General Advanced Practice Nurse 05/16/19 Mitchell Merchant, PAC [address] [place] [address] PCP - General Physician Etiquette Coach 04/18/23 Alessandra Chapa APRN, TOOL/DIE MAKER [address] [place] [address] Nurse Practitioner Advanced Practice Nurse 08/22/22 documented as of this encounter
--- OUTSIDE RECORDS SUMMARY | 2025-01-06 02:42 | XMS_ITS | Encounter Summary ---
Author Organization [facility] Address [address] 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 No / Unsure 10/03/2022 3:04 PM CDT documented as of this encounter Miscellaneous Notes * Telephone Encounter - Mitchell Merchant PAC - 10/30/2022 3:45 PM CDT Rx request approved. * Telephone Encounter - Arabella Vidales RN - 10/30/2022 11:47 AM CDT Medication failed the protocol, provider to review and approve the medication order if appropriate. Requested Prescriptions Pending Prescriptions Disp Refills Phentermine HCl 37.5 MG Tablet [Pharmacy Med Name: PHENTERMINE 37.5MG TABLETS] 30 Tablet Sig: Take 1 Tablet by mouth every morning. Not Delegated - Anorexiants Non-amphetamine Protocol Failed - 10/28/2022 10:21 AM Failed - This refill cannot be delegated Passed - Visit with relevant provider in past 12 months or upcoming 90 days Recent Visits Date Type Provider Dept 09/27/22 Office Visit Xenia Stringer, BENCH LAY OUT TECHNICIAN, SEED PACKER [facility] Showing recent visits within past 365 days and meeting all other requirements Future Appointments No visits were found meeting these conditions. Showing future appointments within next 90 days and meeting all other requirements documented in this encounter Plan of Treatment Upcoming Encounters Date Type Department Care Team (Late st Contact Info) Description 11/09/2025 3:45 PM CDT Office Visit [facility] - Primary Care - [place] [address] [place] [address] Mitchell Merchant PAC [address] [place] [address] documented as of this encounter Visit Diagnoses Diagnosis Obesity (BMI 30-39.9) Obesity, unspecified documented in this encounter Additional Health Concerns Assessment Noted Time PHQ-9 Depression Total Score: 9 09/28/19 23 3:00 PM CDT documented as of this encounter Care Teams Otr Company Driver Relationship Specialty Start Date End Date Xenia Stringer APRN, SEED PACKER [address] [place] [address] PCP - General Advanced Practice Nurse 05/16/19 Mitchell Merchant, PAC [address] [place] [address] PCP - General Physician Prepress Technician 04/18/23 Alessandra Chapa APRN, SEED PACKER [address] [place] [address] Nurse Practitioner Advanced Practice Nurse 08/22/22 documented as of this encounter
--- OUTSIDE RECORDS SUMMARY | 2025-01-06 02:42 | XMS_ITS | Encounter Summary ---
Author Organization [facility] Address [address] [place] [address] Phone Care Team Providers Care Sales Support Assistant Name Role Phone Xenia Stringer APRN, RAILROAD CONSTRUCTION DIRECTOR Primary Care Provider Mitchell Merchant Primary Care Provider Alessandra Chapa APRN, RAILROAD CONSTRUCTION DIRECTOR Unavailable Reason for Visit * Reason Comments Medication Refill Encounter Details Date Type Department Care Team (Late st Contact Info) Description 04/04/2020 Refill [facility] - Primary Care - [place] [address] [place] [address] Xenia Stringer APRN, RAILROAD CONSTRUCTION DIRECTOR [address] [place] [address] Medication Refill Social History Tobacco Use Types Packs/Day Years Used Date Smoking Tobacco: Every Day Cigarettes 1 8.2 Started: 11/01/2016 Smokeless Tobacco: Never Comments:vaps Alcohol Use Standard Drinks/Week Comments Yes 0 (1 standard drink = 0.6 oz pur e alcohol) rarely once a month Sexually Active Control Partners Comments Not Currently Condom Male Comments No Sex and Gender Information Value Date Recorded Sex Assigned at Not on file Legal Sex Female 11:55 PM CDT Gender Identity Not on file Sexual Orientation Not on file Occupation Industry Job Start Date Job End Date [employer]. Not on file Not on file Not on file COVID-19 Exposure Response Date Recorded In the last month, have you been in contact with someone who was confirmed or suspected to have Coronavirus / COVID-19? No / Unsure 03/30/2020 9:46 AM CDT documented as of this encounter Miscellaneous Notes * Telephone Encounter - Maria Dolores Pike RN - 04/06/2020 7:27 AM CDT Medication failed the protocol, provider to review and approve the medication order. Requested Prescriptions Pending Prescriptions Disp Refills traZODone (DESYREL) 50 MG Tablet [Pharmacy Med Name: TRAZODONE 50MG TABLETS] 30 Tab 0 Sig: TAKE 1 TABLET BY MOUTH EVERY NIGHT NEEDED FOR SLEEP Not Delegated - Psychiatry: Antidepressants - Serotonin Reuptake Inhibitor/Antagonist Failed - 04/04/2020 3:36 PM Failed - This refill cannot be delegated Passed - Valid encounter within last 12 months Past Office Visits Recent Outpatient Visits 1 month ago Abnormal facial hair [facility] Xenia Stringer APN, CNP 2 months ago SOB (shortness of breath) [facility] Brett Delgado PAC 10 months ago Vaginal discharge [facility] Xenia Stringer APN, CNP 2 years ago Well woman exam with routine gynecological exam [facility] Gladys Bailey A PAC 2 years ago Elevated liver enzymes [facility] Gladys Bailey A PAC Upcoming Appointments Future Appointments In 4 months Xenia Stringer APN, CNP [facility] SEWER AND CUTTER FINGER BUFF MATERIAL - Recent and Past Visits Recent Visits Date Type Provider Dept 03/01/20 Office Visit Xenia Stringer APN, CNP [facility] 01/28/20 Office Visit Brett Delgado PAC [facility] 05/16/19 Office Visit Xenia Stringer APN, [facility] Showing recent visits within past 460 days with a meds authorizing provider and meeting all other requirements Future Appointments No visits were found meeting these conditions. Showing future appointments within next 90 days with a meds authorizing provider and meeting all other requirements documented in this encounter Plan of Treatment Upcoming Encounters Date Type Department Care Team (Late st Contact Info) Description 11/09/2025 3:45 PM CDT [facility] Visit [facility] - Primary Care - [place] [address] [place] [address] Mitchell Merchant PAC [address] [place] [address] documented as of this encounter Visit Diagnoses Not on filedocumented in this encounter Additional Health Concerns Assessment Noted Time PHQ-9 Depression Total Score: 12 018 3:00 PM CDT documented as of this encounter Care Teams Sales Support Assistant Relationship Specialty Start Date End Date Xenia Stringer APRN, RAILROAD CONSTRUCTION DIRECTOR [address] [place] [address] PCP - General Advanced Practice Nurse 05/16/19 Mitchell Merchant PAC [address] [place] [address] PCP - General Physician Datacap Developer 04/18/23 Alessandra Chapa APRN, RAILROAD CONSTRUCTION DIRECTOR [address] [place] [address] Nurse Practitioner Advanced Practice Nurse 08/22/22 documented as of this encounter
--- OUTSIDE RECORDS SUMMARY | 2025-01-06 02:42 | XMS_ITS | Encounter Summary ---
Author Organization [facility] Address [address] [place] [address] Phone Care Team Providers Care Airframe Technical Officer Name Role Phone Mitchell Merchant Primary Care Provider Alessandra Chapa APRN, RN [facility] Unavailable Reason for Visit * Reason Comments Medication Refill Encounter Details Date Type Department Care Team (Late st Contact Info) Description [facility] - [place] [address] [place] [address] Mitchell Merchant PAC [address] [place] [address] Medication Refill Social History Tobacco Use Types [...] Partners Comments Not Currently Condom Male Comments Yes Sex and Gender Information Value Date Recorded Sex Assigned at Not on file Legal Sex Female 11:55 PM CDT Gender Identity Not on file Sexual Orientation Not on file Occupation Industry Job Start Date Job End Date [employer] Not on file Not on file Not on file documented as of this encounter Miscellaneous Notes * Telephone Encounter - Clarke Mcintosh RN - 09/03/2023 10:59 AM CST Duplicate Request SERVICE DIRECTOR documented in this encounter Plan of Treatment Upcoming Encounters Date Type Department Care Team (Late st Contact Info) Description 11/09/2025 3:45 PM CDT Office Visit [facility] - Primary Care - [place] [address] [place] [address] Mitchell Merchant PAC [address] [place] [address] documented as of this encounter Visit Diagnoses Not on filedocumented in this encounter Additional Health Concerns Assessment Noted Time PHQ-9 Depression Total Score: 9 09/28/19 23 3:00 PM CDT documented as of this encounter Care Teams Airframe Technical Officer Relationship Specialty Start Date End Date Mitchell Merchant PAC [address] [place] [address] PCP - General Physician Finance Teacher 04/18/23 Alessandra Chapa APRN, RN [facility] [address] [place] [address] Nurse Practitioner Advanced Practice Nurse 08/22/22 documented as of this encounter
--- OUTSIDE RECORDS SUMMARY | 2025-01-06 02:42 | XMS_ITS | Encounter Summary ---
Author Organization [facility] Address [address] [place] [address] Phone Care Team Providers Care Vamp Creaser Name Role Phone Mitchell Merchant Primary Care Provider [phone] Alessandra Chapa APRN, TRACK GREASER Unavailable Reason for Visit * Reason Comments Medication Refill Encounter Details Date Type Department Care Team (Late st Contact Info) Description [facility] - [place] [address] [place] [address] Mitchell Merchant PAC [address] [place] [address] Medication Refill Social History Tobacco [...] Industry Job Start Date Job End Date [employer]. Not on file Not on file Not on file documented as of this encounter Miscellaneous Notes * Telephone Encounter - Yaz Meneses, RN - 10/29/2023 9:22 AM CDT Refill requested too soon. documented in this encounter Plan of Treatment Upcoming Encounters Date Type Department Care Team (Late st Contact Info) Description 11/09/2025 3:45 PM CDT Office Visit [facility] - Primary Care - Sh[place] [address] [place] [address] Mitchell Merchant PAC [address] [place] [address] documented as of this encounter Visit Diagnoses Not on filedocumented in this encounter Additional Health Concerns Assessment Noted Time PHQ-9 Depression Total Score: 9 09/28/19 23 3:00 PM CDT documented as of this encounter Care Teams Vamp Creaser Relationship Specialty Start Date End Date Mitchell Merchant PAC [address] [place] [address] PCP - General Physician Tray Service Worker 04/18/23 Alessandra Chapa APRN, TRACK GREASER [address] [place] [address] Nurse Practitioner Advanced Practice Nurse 08/22/22 documented as of this encounter
--- OUTSIDE RECORDS SUMMARY | 2025-01-06 02:42 | XMS_ITS | Encounter Summary ---
Author Organization [facility] Address [address] [place] [address] Phone Care Team Providers Care Third Rail Installer Name Role Phone Xenia Stringer APRN, STEAM HAMMER OPERATOR Primary Care Provider Mitchell Merchant Primary Care Provider [phone] Alessandra Chapa APRN, STEAM HAMMER OPERATOR Unavailable Reason for Visit * Reason Comments Medication Refill Encounter Details Date Type Department Care Team (Late st Contact Info) Description 02/04/2021 Refill [facility] - Primary Care - [place] [address] [place] [address] Xenia Stringer APRN, STEAM HAMMER OPERATOR [address] [place] [address] Medication Refill Social History Tobacco [...] 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 No / Unsure 02/03/2021 1:14 PM CDT documented as of this encounter Miscellaneous Notes * Telephone Encounter - Xenia Stringer APN, CNP - 02/04/2021 1:43 PM CDT [place] prescription monitoring site reviewed. Medication approved. * Telephone Encounter - Myriam Haji RN - 02/04/2021 12:55 PM CDT Transferred to med management team at [facility] * Telephone Encounter - Abigail Ramirez RN - 02/04/2021 12:33 PM CDT Medication failed the protocol, provider to review and approve the medication order if appropriate. Requested Prescriptions Pending Prescriptions Disp Refills traZODone (DESYREL) 50 MG Tablet [Pharmacy Med Name: TRAZODONE 50MG TABLETS] 90 Tablet 0 Sig: TAKE 1 TABLET BY MOUTH AT BEDTIME NEEDED SLEEP Serotonin Modulators (6 Month Refill Only) Protocol Failed - 02/04/2021 12:22 PM Failed - Has an encounter in the past 6 months with a depression or anxiety visit diagnosis Passed - No test in the past 12 months or most recent test was negative Passed - No active on record Passed - Visit with relevant provider in past 6 months or upcoming 90 days Recent Visits Date Type Provider Dept 08/30/20 Office Visit Xenia Stringer APN, CNP [facility] Showing recent visits within past 182 days and meeting all other requirements Future Appointments No visits were found meeting these conditions. Showing future appointments within next 90 days and meeting all other requirements Passed - No PRN Use for Trazodone Passed - Patient has established therapy with Serotonin Modulators for at least 6 months Phentermine HCl 37.5 MG Tablet [Pharmacy Med Name: PHENTERMINE 37.5MG TABLETS] 30 Tablet Sig: TAKE 1 TABLET BY MOUTH EVERY MORNING BEFORE BREAKFAST [facility] Not Delegated - Gastroenterology: Antiobesity Agents Failed - 02/04/2021 12:22 PM Failed - This refill cannot be delegated Passed - Valid encounter within last 6 months Past Office Visits Recent Outpatient Visits 5 months ago Disturbed concentration [facility] Xenia Stringer APN, ELEUTERIO 7 months ago Tinea cruris [facility] Xenia Stringer APN, STEAM HAMMER OPERATOR 11 months ago Abnormal facial hair [facility] Xenia Stringer APN, ELEUTERIO 1 year ago SOB (shortness of breath) [facility] Brett Delgado PAC 1 year ago Vaginal discharge 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 Showing future appointments within next 90 days with a meds authorizing provider and meeting all other requirements Passed - Last BP in normal range BP Readings from Last 1 Encounters: 02/03/21 122/62 documented in this encounter Plan of Treatment Upcoming Encounters Date Type Department Care Team (Late st Contact Info) Description 11/09/2025 3:45 PM CDT Office Visit [facility] [address] [place] [address] Mitchell Merchant, PAC [address] [place] [address] documented as of this encounter Visit Diagnoses Diagnosis Poor sleep documented in this encounter Additional Health Concerns Assessment Noted Time PHQ-9 Depression Total Score: 12 020 10:00 AM COMMUNICATION SPEC documented as of this encounter Care Teams Third Rail Installer Relationship Specialty Start Date End Date Xenia Stringer APRN, STEAM HAMMER OPERATOR [address] [place] [address] PCP - General Advanced Practice Nurse 05/16/19 Mitchell Merchant PAC [address] [place] [address] PCP - General Physician Sales Market Leader 04/18/23 Alessandra Chapa APRN, STEAM HAMMER OPERATOR [address] [place] [address] Nurse Practitioner Advanced Practice Nurse 08/22/22 documented as of this encounter
--- OUTSIDE RECORDS SUMMARY | 2025-01-06 02:42 | XMS_ITS | Clinical Summary ---
Author Organization [facility] Address [address] [place] [address] Care Team Providers Care Coal Crusher Operator Name Role Phone Mitchell Merchant Rylan Primary Care Provider [phone] Source Comments [facility],non-owned Affiliates and Associated Physician Practices is amultiple site organization consisting of ambulatory clinics and hospital sitesin [place], [place], [place] and [place]. This disclosure is being madepursuant to the Care Everywhere program and may not contain all information available regarding this patient. Last updated 18.[facility] Allergies No known active allergies Medications * Be aware that medications may not be up to date on this document. Alwaysverify current medications with the patient. albuterol HFA (Proventil; Ventolin; Proair) 108 (90 Base) MCG/ACT inhaler Inhale 2 (two) puffs by mouth every 4 hours as needed for Wheezing or Cough 4 Active Slynd 4 MG TABS tablet Take 1 (one) tablet by mouth once daily Active sertraline (Zoloft) 50 MG tablet Take 1 (one) tablet by mouth once daily 5 Active acyclovir (Zovirax) 400 MG tablet Take 1 (one) tablet by mouth 2 times daily 4 Active triamcinolone acetonide (Kenalog) 0.1 % cream APPLY SMALL AMOUNT TOPICALLY TO THE AFFECTED AREA TWICE DAILY FOR 14 DAYS 5 Active triamcinolone acetonide (Kenalog) 0.1 % ointmentIndicat ions:Other eczema Apply to affected area on chest thinly bid 454 g 5 Active mometasone (Elocon) 0.1 % ointmentIndicat ions:Other eczema Apply to affected areas on hands BID. 30 day supply. 45 g 5 Active econazole nitrate (Spectazole) 1 % creamIndication s:Intertrigo Apply to rash under breasts and groin folds 1-2 times daily. 30 days supply. 30 g 2 5 Active Active Problems No known active problems Encounters Date Type Department Care Team Description 11/06/2024 3:00 PM CDT Office Visit [facility] - Cosmetic Dermatology [address] [place] [address] Elisabet Abel MD Acanthosis nigricans (Primary Dx); Epidermal cyst; Intertrigo; Other eczema 11/06/2024 Travel from Last 3 Months Social History Tobacco Use Types Packs/Day Years Used Date Smoking Tobacco: Never Smokeless Tobacco: Never Tobacco Cessation:Counseling Given: Not Answered Comments Unknown Sex and Gender Information Value Date Recorded Sex Assigned at Not on file Legal Sex Female 3:37 PM CDT Gender Identity Not on file Sexual Orientation Not on file Last Filed Vital Signs Vital Sign Reading Time Taken Comments Blood Pressure 113/71 10/08/2018 2:18 PM CDT Pulse 60 10/08/2018 2:18 PM CDT Temperature 37 C (98.6 F) 10/08/2018 2:18 PM CDT Respiratory Rate 18 10/08/2018 2:18 PM CDT Oxygen Saturation 96% 10/08/2018 2:18 PM CDT Inhaled Oxygen Concentration - - Weight 68.2 kg (150 lb 4.8 oz) 10/08/2018 2:18 P M CDT Height 160 cm (5' 3) 10/08/2018 2:18 PM CDT Body Mass Index 26.62 10/08/2018 2:18 PM CDT Plan of Treatment Health Maintenance Due Date Last Done Comments HIV SCREENING 12/03/2010 DTAP/TDAP/TD VACCINES (1 - Tdap) 12/03/2014 HEPATITIS B VACCINE (1 of 3 - 19+ 3-dose series) 12/03/2014 PAP SMEAR 01/31/2021 01/31/2018 COVID-19 VACCINE ( season) 2024 02/22/2021, 12/29/2020, 12/08/2020 DEPRESSION SCREENING 07/02/2024 INFLUENZA VACCINE (#1) 2025 , 06/18/2018, 08/07/2017, Additional history exists ZOSTER VACCINE (1 of 2) 12/03/2045 HEPATITIS C SCREENING Completed 10/08/2018 , 10/08/2018, 07/22/2018, Additional history exists HIB VACCINE Aged Out No longer eligi ble based on patient's age to complete this topic HPV VACCINE Aged Out No longer eligi ble based on patient's age to complete this topic MENINGOCOCCAL (Group B) VACCINE SHARED DECISION-MAKING Aged Out No longer eligible based on patient's age to complete this topic MENINGOCOCCAL GROUPS A/C/Y/W VACCINE Aged Out No longer eligible based on patient's age to complete this topic PNEUMOCOCCAL VACCINE Aged Out No long er eligible based on patient's age to complete this topic Insurance [facility] Care Teams Coal Crusher Operator Relationship Specialty Start Date End Date Mitchell Merchant [address] [place] [address] PCP - General 09/15/24
--- OUTSIDE RECORDS SUMMARY | 2025-01-06 02:42 | XMS_ITS | Encounter Summary ---
Author Organization [facility] Address [address] [place] [address] Phone Care Team Providers Care Play Leader Name Role Phone Mitchell Merchant Primary Care Provider Alessandra Chapa APRN, SPORTS BOOK BOARD ATTENDANT Unavailable Reason for Visit * Reason Comments Medication Refill Encounter Details Date Type Department Care Team (Late st Contact Info) Description 08/28/2023 [facility] - [place] [address] [place] [address] Mitchell Merchant PAC [address] [place] [address] Medication Refill Social History Tobacco [...] Industry Job Start Date Job End Date [employer]. Not on file Not on file Not on file documented as of this encounter Miscellaneous Notes * Telephone Encounter - Mitchell Merchant PAC - 08/29/2023 10:45 AM IGNITION MECHANIC Refill approved. TION MECHANIC * Telephone Encounter - Clarke Mcintosh RN - 08/29/2023 9:03 AM CST Medication failed the protocol, provider to review and approve the medication order if appropriate. Requested Prescriptions Pending Prescriptions Disp Refills acyclovir (ZOVIRAX) 400 MG Tablet [Pharmacy Med Name: ACYCLOVIR 400MG TABLETS] 180 Tablet 0 Sig: TAKE 1 TABLET BY MOUTH TWICE DAILY Not Delegated - Herpes Agents Protocol Failed - 08/28/2023 8:08 PM Failed - This refill cannot be delegated Passed - Visit with relevant provider in past 12 months or upcoming 90 days Recent Visits Date Type Provider Dept 04/18/23 Office Visit Mitchell Merchant PAC [facility] 09/27/22 Office Visit Xenia Stringer, INVESTIGATOR FRAUD, SPORTS BOOK BOARD ATTENDANT [facility] Showing recent visits within past 365 days and meeting all other requirements Future Appointments No visits were found meeting these conditions. Showing future appointments within next 90 days and meeting all other requirements TION MECHANIC documented in this encounter Plan of Treatment Upcoming Encounters Date Type Department Care Team (Late st Contact Info) Description 11/09/2025 3:45 PM CDT Office Visit [facility] - Primary Care - [place] [address] [place] [address] Mitchell Merchant PAC [address] [place] [address] documented as of this encounter Visit Diagnoses Not on filedocumented in this encounter Additional Health Concerns Assessment Noted Time PHQ-9 Depression Total Score: 9 09/28/19 23 3:00 PM CDT documented as of this encounter Care Teams Play Leader Relationship Specialty Start Date End Date Mitchell Merchant PAC [address] [place] [address] PCP - General Physician Wood Ski Maker 04/18/23 Alessandra Chapa, INVESTIGATOR FRAUD, SPORTS BOOK BOARD ATTENDANT [address] [place] [address] Nurse Practitioner Advanced Practice Nurse 08/22/22 documented as of this encounter
--- OUTSIDE RECORDS SUMMARY | 2025-01-06 02:42 | XMS_ITS | Clinical Summary ---
Author Organization [facility] Address [address] [place] [address] Phone Care Team Providers Care Software Tools Build Engineer Name Role Phone Mitchell Merchant Primary Care Provider [phone] Alessandra Chapa APRN, HAT CUTTER Unavailable Allergies No known active allergies Medications Slynd 4 MG Tablet Take 1 Tablet by mouth daily. 024 Active SEMAGLUTIDE,0.2 5 OR 0.5MG/DOS, SC by Subcutaneous route. Active triamcinolone (KENALOG) 0.1 % CreamIndication s:Eczema, unspecified type Application Site:Apply a small amount to affected area 2 times per day for 14 days. 45 g 1 025 Active econazole nitrate 1 % Cream Apply to rash under breasts and groin folds 1-2 times daily. 30 days supply. 025 Active mometasone (ELOCON) 0.1 % Ointment Apply to affected areas on hands BID. 30 day supply. 025 Active sertraline (ZOLOFT) 50 MG TabletIndicatio ns:Anxiety and depression TAKE 1 TABLET BY MOUTH DAILY 90 Tablet 025 Active albuterol 108 (90 Base) MCG/ACT Aerosol SolutionIndicat ions:Mild intermittent asthma without complication take 2 Puffs by inhalation every 4 hours as needed for Wheezing or Cough. 36 g 025 Active acyclovir (ZOVIRAX) 400 MG Tablet TAKE 1 TABLET BY MOUTH TWICE DAILY 180 Tablet 025 Active acyclovir (ZOVIRAX) 400 MG Tablet TAKE 1 TABLET BY MOUTH TWICE DAILY 180 Tablet 025 2024 Discontinued albuterol 108 (90 Base) MCG/ACT Aerosol Solution INHALE 2 PUFFS BY MOUTH EVERY 4 HOURS NEEDED FOR WHEEZING OR COUGH 18 g 025 2024 Discontinued albuterol 108 (90 Base) MCG/ACT Aerosol Solution INHALE 2 PUFFS BY MOUTH EVERY 4 HOURS NEEDED FOR WHEEZING OR COUGH 18 g 2 025 2024 Discontinued(R eorder) Active Problems Problem Noted Date Diagnosed Date History of drug abuse 11/02/2023 Eczema 09/27/2022 Mild intermittent asthma without complication Overview (09/27/2022): Last Assessment & Plan: Condition: stable Continue to take medication as prescribed. Reviewed trigger avoidance and reviewed proper use of inhalers and rescue medications. Reviewed concerning signs/symptoms and ER precautions. Follow up in: if symptoms worsen or fail to improve Obesity (BMI 30-39.9) 08/30/2020 Tobacco dependence 08/30/2020 Chronic hepatitis C without hepatic coma 018 Herpes simplex 07/06/2015 Overview (03/01/2020): Note: Unchanged Resolved Problems Problem Noted Date Diagnosed Date Resolved Date Opioid abuse 07/06/2015 11/02/2023 Overview (03/01/2020): Note: Unchanged Encounters Date Type Department Care Team Description 12/31/2024 Refill [facility] - [place] [address] [place] [phone] Mitchell Merchant, PAC Medication Refill 12/15/20[facility] [place] [address] [place] [address] Mitchell Merchant, PAC Medication Refill 11/15/2024 Refill [facility] - [place] [address] [place] [phone] Mitchell Merchant PAC Medication Refill 11/10/2024 Results Follow-Up [facility] - [place] [address] [place] [phone] Mitchell Merchant, LOREN HEPATITIS C RNA QUANT PCR VIRAL LOAD, HEMOGLOBIN A1C W/ ESTIMATED GLUCOSE 11/10/2024 Refill [facility] [place] [phone] Mitchell Merchant PAC Medication Refill 11/07/2024 4:30 PM CDT Lab [facility] [place] [phone] [facility] History of hepatitis C; Acanthosis nigricans Discharge Disposition: Discharged to home or Selfcare 11/07/2024 3:45 PM CDT Office Visit [facility] - [place] [address] [place] [phone] Mitchell Merchant PAC Preventative health care (Adult) (Primary Dx); History of hepatitis C; Acanthosis nigricans; Synovial cyst of left popliteal space Discharge Disposition: Discharged to home or Selfcare 11/06/2024 Travel 10/09/2024 12:40 PM CDT Lab [facility] [place] [address] [facility] Preventative health care (Adult) Discharge Disposition: Discharged to home or Selfcare 10/09/2024 Results Follow-Up [facility] [place] [phone] Mitchell Merchant PAC CMP (COMPREHENSIVE METABOLIC PANEL), LIPID PANEL, CBC WITH AUTO DIFFERENTIAL, THYROID SCREEN WITH REFLEX 10/09/2024 Travel from Last 3 Months Immunizations Immunization Administration Dates Next Due [id number] feliberto MCV4, Unspecif ied Formulation 07/20/2011 Covid-19, Mrna, Lnp-s, Pf, 3 0 Mcg/0.3 Ml Dose ([employer]) 02/22/2021,12/29/2020,12/08/2020 DTAP VACCINE 08/06/1997 DTP Vaccine 02/29/1996 DTP-Hib 1996,06/19/1996 HIB Vaccine (PRP-T) 08/06/1997,02/29/1996 Hepatitis A Vaccine 03/12/2018,08/07/2017,2013 Hepatitis B Vaccine, Pediatric/adolescent 1996,06/19/1996,02/29/1996 Hib Vaccine,unspecified Formulation 08/06/1997,0 02/29/1996 Human Papillomavirus Vaccine (HPV), quadrivalent 08/22/2007,03/21/2007,01/10/2007 Influenza Vaccine, Quadrivalent, PF 06/21/2020,0 08/07/2017 Influenza, Recombinant, Quadrivalent,injectable, Pf 06/18/2018 MMR Vaccine 08/06/1997 OPV 1996,06/19/1996,02/29/1996 Pneumococcal Vaccine Adult - 23 Valent 8 TDAP Vaccine 07/10/2023,,06/18/2018,07/20 Td Vaccine (preservative free) 06/18/2018 Family History Medical History Relation Name Comments No Known Problems Brother 1 No Known Problems Brother 2 Diabetes Father Schizophrenia Father No Known Problems Maternal Grandfather No Known Problems Maternal Grandmother No Known Problems Mother No Known Problems Paternal Grandfather Arthritis Paternal Grandmother Relation Name Status Comments Brother 1 Alive Brother 2 Alive Father Alive Maternal Grandfather Maternal Grandmother Alive Mother Alive avascular necor sis hip Paternal Grandfather Alive Paternal Grandmother Alive Social History Tobacco Use Types Packs/Day Years Used Date Smoking Tobacco: Former Cigarettes 1 8.2 S tarted: 11/01/2016 Smokeless Tobacco: Never Tobacco Cessation:Counseling Given: Not Answered Comments:vaps Alcohol Use Standard Drinks/Week Comments Yes 0 (1 standard drink = 0.6 oz pur e alcohol) 2x monthly; [facility] Utilities Answer Date Recorded In the past 12 months has th e electric, gas, oil, or water [employer] threatened to shut off services in your home? No 11/06/2024 Social Connection and Isolation Panel Answer Date Recorded In a typical week, how many times do you talk on the phone with family, friends, or neighbors? More than three times a week 11/06/2024 How often do you get togethe r with friends or relatives? More than three times a week 11/06/2024 How often do you attend chur or protestant services? More than 4 times per year 11/06/2024 Do you belong to any clubs o r organizations such as yarsani groups, unions, fraternal or athletic groups, or school groups? Yes 11/06/2024 How often do you attend meet ings of the clubs or organizations you belong to? More than 4 times per year 11/06/2024 Are you , , di vorced, , never , or living with a partner? Living with partner 11/06/2024 AUDIT-C Answer Date Recorded Q1: How often do you have a drink containing alcohol? Never 11/06/2024 Q2: How many drinks containi ng alcohol do you have on a typical day when you are drinking? Patient does not drink Q3: How often do you have si x or more drinks on one occasion? Never 11/06/2024 Overall Financial Resource Strain (CARDIA) Answe r Date Recorded How hard is it for you to pa y for the very basics like food, housing, medical care, and heating? Somewhat hard 11/06/2024 PHQ-2 Answer Date Recorded Total Score - Questions 1-9 0 03/2025 [facility] - Occupational Stress Questionnaire Answer Date Recorded Do you feel stress - tense, restless, nervous, or anxious, or unable to sleep at night because your mind is troubled all the time - these days? To some extent 11/06/2024 Exercise Vital Sign Answer Date Recorde d On average, how many days pe r week do you engage in moderate to strenuous exercise (like a brisk walk)? 1 day 11/06/2024 On average, how many minutes do you engage in exercise at this level? 30 min 11/06/2024 Hunger Vital Sign Answer Date Recorded Within the past 12 months, y ou worried that your food would run out before you got the money to buy more. Often true Within the past 12 months, t he food you bought just didn't last and you didn't have money to get more. Sometimes true 01/2025 PRAPARE - Transportation Answer Date Re corded In the past 12 months, has l ack of transportation kept you from medical appointments or from getting medications? No 01/2025 In the past 12 months, has l ack of transportation kept you from meetings, work, or from getting things needed for daily living? No 11/06/2024 Housing Stability Vital Sign Answer Scooby e Recorded In the last 12 months, was t here a time when you were not able to pay the mortgage or rent on time? No 11/06/2024 In the past 12 months, how m any times have you moved where you were living? 0 11/06/2024 At any time in the past 12 m [facility], were you homeless or living in a long term (including now)? 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 Not on file Not on file Not on file Last Filed Vital Signs Vital Sign Reading Time Taken Comments Blood Pressure 118/74 11/07/2024 3:39 PM CDT Pulse 84 11/07/2024 3:39 PM CDT Temperature 36.8 C (98.2 F) 11/07/2024 3:39 PM CDT Respiratory Rate 20 11/07/2024 3:39 PM CDT Oxygen Saturation 98% 11/07/2024 3:39 PM CDT Inhaled Oxygen Concentration - - Weight 93 kg (205 lb) 11/07/2024 3:39 PM CDT Height 162.6 cm (5' 4) 11/07/2024 3:39 PM CDT Body Mass Index 35.19 11/07/2024 3:39 PM CDT Plan of Treatment Upcoming Encounters Date Type Department Care Team (Late st Contact Info) Description 11/09/2025 3:45 PM CDT Office Visit [facility] - Primary Care - [place] [address] [place] [phone] Mitchell Merchant PAC [address] [place] [phone] Health Maintenance Due Date Last Done Comments Pneumococcal Immunization Combined (2 of 2 - PCV) 01/31/2019 01/31/2018 Pap Smear 01/31/2021 01/31/2018 SARS-COV-2 Immunization ( season) 2024 02/22/2021, 12/29/2020, 12/08/2020 Influenza Immunization (#1) 03/02/202506/02, 06/18/2018, 08/07/2017 DTaP/Tdap/Td Immunization (10 - Td or Tdap) 07/10/2033 07/10/2023, 01/17/2022, 06/18/2018, Additional history exists Respiratory Syncytial Virus (RSV) Immunization (Adult) (1 - 1-dose 75+ series) 12/03/2070 Hepatitis B Immunization Completed 997, 06/19/1996, 02/29/1996 Human Papillomavirus (HPV) Immunization Completed 08/22/2007, 03/21/2007, 01/10/2007 Meningococcal Immunization (ACWY) Aged Out 07/20/2011 No longer eligible based on patient's age to complete this topic Rotavirus Immunization Aged Out No lo nger eligible based on patient's age to complete this topic Procedures Procedure Name Priority Date/Time Associated Diagnosis Comments STREP 11/26/2024 12:00 AM CDT STREP 11/26/2024 12:00 AM CDT HEMOGLOBIN A1C W/ ESTIMATED GLUCOSE Routine 11/07/2024 4:30 PM CDT Acanthosis nigricans HEPATITIS C RNA QUANT PCR VIRAL LOAD Routine 11/07/2024 4:30 PM CDT History of hepatitis C THYROID SCREEN WITH REFLEX Routine 10/09/2024 11:37 AM CDT Preventative health care (Adult) CBC WITH AUTO DIFFERENTIAL Routine 10/09/2024 11:37 AM CDT Preventative health care (Adult) THYROID SCREEN WITH REFLEX Routine 10/09/2024 11:37 AM CDT Preventative health care (Adult) LIPID PANEL Routine 10/09/2024 11:37 AM CDT Preventative health care (Adult) COMPLETE BLOOD COUNT (CBC) WITH DIFF Routine 10/09/2024 11:37 AM CDT Preventative health care (Adult) CMP (COMPREHENSIVE METABOLIC PANEL) Routine 10/09/2024 11:37 AM CDT Preventative health care (Adult) PATHOLOGY CYTOLOGY CARBONATION TESTER Routine 01/31/2018 8:53 AM CDT Screening for cervical cancer from Last 3 Months or Most Recently Relevant to Health Maintenance Results * STREP (11/26/2024 12:00 AM CDT) Only the most recent of2 resultswithin the time period is included. 11/26/2024 us Provider Scan MICROBIOLOGY - GENERAL ORDERABLE S Final Result SCAN * HEPATITIS C RNA QUANT PCR VIRAL LOAD (11/07/2024 4:30 PM CDT) HCV RNA QUANT PCR NON DETECTED NON DETECTED 11/10/2024 4:12 PM CDT [facility] HCV RNA QT LOG10 11/10/2024 4:12 PM CDT [facility] Comment: LOG 10 is not applicable. This test was performed using TERRANCE 5800 Real Time PCR. Blood Venipuncture / Unknown 11/07/2024 4:30 PM CDT 11/07/2024 4:30 PM CDT us Mitchell PIMENTEL IMMUNOLOGY ORDERABLES Final Result [facility] [address] [place] [address], [place] * HEMOGLOBIN A1C W/ ESTIMATED GLUCOSE (11/07/2024 4:30 PM CDT) HGB-A1C 5.5 4.0 - 6.0 % 11/08/2024 5:19 PM CDT [facility] Est Average Glucose 111.2 mg/dL 11/08/2024 5:19 PM CDT [facility] Blood Venipuncture / Unknown 11/07/2024 4:30 PM CDT 11/07/2024 4:30 PM CDT Narrative [facility] - 11/08/2024 5:19 PM CDT HEMOGLOBIN A1C: DIABETIC PATIENTS: WELL-CONTROLLED: 6.2 - 7.0 INTERMEDIATE WELL-CONTROLLED: 7.0 - 9.0 POORLY-CONTROLLED: >9.0 Specimens containing greater than 5% of Hemoglobin F may result in lower than expected % HbA1C results. Mitchell Merchant PAC CHEMISTRY ORDERABLES Final R esult [facility] [address] [place] [address] * THYROID SCREEN WITH REFLEX (10/09/2024 11:37 AM CDT) Pathologist [facility] TSH 3.178 0.300 - 5.000 mIU/L 10/09/2024 1:04 PM CDT [facility] Blood Venipuncture / Unknown 10/09/2024 11:37 AM CDT 10/09/2024 11:37 AM CDT us Mitchell Merchant PAC CHEMISTRY ORDERABLES Final R esult [facility] [address] [place] [address] * (ABNORMAL) CBC WITH AUTO DIFFERENTIAL (10/09/2024 11:37 AM CDT) [facility] WBC 8.69 4.00 - 12.00 10(3)/mcL 10/09/2024 12:30 PM CDT [facility] RBC 4.68 3.80 - 5.30 10(6)/mcL 10/09/2024 12:30 PM CDT [facility] HEMOGLOBIN (HGB) 15.3 12.0 - 15.8 g/dL 10/09/2024 12:30 PM CDT [facility] HEMATOCRIT (HCT) 45.5 36.0 - 47.0 % 10/09/2024 12:30 PM CDT [facility] MCV 97.2(H) 82.0 - 96.0 fL 10/09/2024 12:30 PM CDT [facility] MCH 32.7 26.0 - 34.0 pg 10/09/2024 12:30 PM CDT [facility] MCHC 33.6 31.0 - 36.0 g/dL 10/09/2024 12:30 PM CDT [facility] PLATELET COUNT 297 140 - 440 10(3)/[facility] 10/09/2024 12:30 PM CDT [facility] RDW 11.6(L) 11.8 - 15.5 % 10/09/2024 12:30 PM CDT [facility] MPV 10.0 9.7 - 12.4 fL 10/09/2024 12:30 PM CDT [facility] NEUTROPHILS 58.0 47.0 - 73.0 % 10/09/2024 12:30 PM CDT [facility] LYMPHOCYTES 34.9 18.0 - 42.0 % 10/09/2024 12:30 PM CDT [facility] MONOCYTES 4.7 4.0 - 12.0 % 10/09/2024 12:30 PM CDT [facility] EOSINOPHILS 1.6 0.0 - 5.0 % 10/09/2024 12:30 PM CDT [facility] BASOPHILS 0.8 0.0 - 1.0 % 10/09/2024 12:30 PM CDT [facility] ABSOLUTE NEUTROPHILS 5.04 1.60 - 7.70 10(3)/mcL 10/09/2024 12:30 PM CDT [facility] ABSOLUTE LYMPHOCYTES 3.03 1.30 - 3.20 10(3)/mcL 10/09/2024 12:30 PM CDT [facility] ABSOLUTE MONOCYTES 0.41 0.20 - 1.00 10(3)/mcL 10/09/2024 12:30 PM CDT [facility] ABSOLUTE EOSINOPHIL 0.14 0.00 - 0.40 10(3)/mcL 10/09/2024 12:30 PM CDT [facility] ABSOLUTE BASOPHILS 0.07 0.00 - 0.10 10(3)/mcL 10/09/2024 12:30 PM CDT [facility] NRBC PER 100 WBC 0 10/10/19 12:30 PM CDT [facility] Blood Venipuncture / Unknown 10/09/2024 11:37 AM CDT 10/09/2024 11:37 AM CDT Mitchell Merchant [facility] HEMATOLOGY ORDERABLES Final Result [facility] [address] [place] [address] * (ABNORMAL) LIPID PANEL (10/09/2024 11:37 AM CDT) CHOLESTEROL 131 <200 mg/dL 10/09/2024 12:52 PM CDT [facility] TRIGLYCERIDES 177(H) <150 mg/dL 10/09/2024 12:52 PM CDT [facility] HDL CHOLESTEROL 39(L) >40 mg/dL 12:52 PM CDT [facility] LDL 57 <130 mg/dL 10/09/2024 12:52 PM CDT [facility] VLDL 35 10 - 50 mg/dL 10/09/2024 12:52 PM CDT [facility] CHOL/HDL RATIO 3.4 0.0 - 4.4 10/09/2024 12:52 PM CDT [facility] NON-HDL CHOLESTEROL 92 <130 mg/dL 10/09/2024 12:52 PM CDT [facility] IS THE PATIENT REQUIRED TO BE FASTING? Yes 10/09/2024 12:52 PM CDT [facility] HAS THE PATIENT BEEN FASTING? Yes 10/09/2024 12:52 PM CDT [facility] Blood Venipuncture / Unknown 10/09/2024 11:37 AM CDT 10/09/2024 11:37 AM CDT us Mitchell Merchant PAC CHEMISTRY ORDERABLES Final R esult [facility] [address] [place] [address] * (ABNORMAL) CMP (COMPREHENSIVE METABOLIC PANEL) (10/09/2024 11:37 AM CDT) SODIUM 138 136 - 145 mmol/L 10/09/2024 12:52 PM CDT [facility] POTASSIUM 4.7 3.5 - 5.1 mmol/L 10/09/2024 12:52 PM CDT [facility] CHLORIDE 106 98 - 107 mmol/L 10/09/2024 12:52 PM CDT [facility] CO2, VENOUS 25 22 - 30 mmol/L 10/09/2024 12:52 PM CDT [facility] ANION GAP 11.7 <18.0 mmol/L 10/09/2024 12:52 PM CDT [facility] GLUCOSE 98 70 - 99 mg/dL 10/09/2024 12:52 PM CDT [facility] BUN 14 5 - 18 mg/dL 10/09/2024 12:52 PM CDT [facility] CREATININE, BLOOD 0.69 0.60 - 1.00 mg/dL 10/09/2024 12:52 PM T [facility] BUN/CREATININE RATIO 20 12 - 20 ratio 10/09/2024 12:52 PM [facility] TOTAL PROTEIN 8.1(H) 6.0 - 8.0 g/dL 10/09/2024 12:52 PM T [facility] ALBUMIN 4.5 3.5 - 5.0 g/dL 10/09/2024 12:52 PM [facility] A/G RATIO 1.3 1.0 - 2.2 10/09/2024 12:52 PM [facility] CALCIUM 9.1 8.7 - 10.5 mg/dL 10/09/2024 12:52 PM [facility] T BILI 0.4 0.2 - 1.2 mg/dL 10/09/2024 12:52 PM [facility] SGOT (AST) 21 <43 U/L 10/09/2024 12:52 PM [facility] SGPT (ALT) 15 <56 U/L 10/09/2024 12:52 PM [facility] ALKALINE PHOSPHATASE 67 40 - 150 U/L 10/09/2024 12:52 PM [facility] IS THE PATIENT REQUIRED TO BE FASTING? Yes 10/09/2024 12:52 PM [facility] HAS THE PATIENT BEEN FASTING? Yes 10/09/2024 12:52 PM [facility] GFR, ESTIMATED >60 >=60 10/09/2024 12:52 PM [facility] Comment: Creatinine Clearance is the preferred criteria for selecting drug dose adjustments in renally impaired patients. The GFR is provided as additional pertinent clinical information. GFR is reported in mL/min/1.73 sq m. Calculation based on the Chronic Kidney Disease Epidemiology Collaboration (CKD- EPI) equation refit without adjustment for race. GFR, EST. >60 >=60 025 12:52 PM T [facility] GFR, EST. NONAFRICAN >60 >=60 10/09/2024 12:52 PM CDT [facility] Blood Venipuncture / Unknown 10/09/2024 11:37 AM CDT 10/09/2024 11:37 AM CDT us Mitchell Merchant PAC CHEMISTRY ORDERABLES Final R esult [facility] [address] [place] [address] * PATHOLOGY CYTOLOGY CARBONATION TESTER (01/31/2018 8:53 AM CDT) SPECIMEN ADEQUACY Satisfactory for evaluation. Endocervical cells present. 02/12/2018 8:36 AM CDT [facility] DESCRIPTIVE DIAGNOSIS Negative for intraepithelial lesions. No dysplastic cells present. 02/12/2018 8:36 AM CDT [facility] at 0836 CDT OTHER FINDINGS Shift in alka suggestive of bacterial vaginosis 02/12/2018 8:36 AM CDT [facility] AUTOMATED EXAMINATION Analysis of this sample has been assisted by an automated imaging and review system ([employer] System, [employer], [place], [place]). This case is further evaluated and finalized by a content creation manager and/or pathologist. 02/12/2018 8:36 AM CDT [facility] DISCLAIMER The PAP smear is a screening test designed to detect cancerous or precancerous cells of the uterine cervix. It is one of the best means available for detection of cervical cancer but still carries an inherent false-negative rate. The consequences of a false-negative PAP result can be minimized by adhering to current screening guidelines. The following are general guidelines recommended by the ACS, ASCP, ASCCP, and ACOG: PAP testing is recommended every three years for women 21-29, Co-Testing, a PAP test in conjunction with an HPV (Human Papillomavirus) test for women ages 30-65, and no PAP or HPV testing for women under the age of 21 or older than 65 unless clinically indicated. 02/12/2018 8:36 AM CDT [facility] Case Report Gynecologic Cytology Report Case: [id number] Authorizing Provider: Gldays Bailey PAC Collected: 01/31/2018 08:53 AM Ordering Location: [facility] MEDICAL Received: 01/31/2018 08:53 AM GROUP - [facility] [place] First Screen: Deana John Specimen: TP Screen, CERVIX/ENDOCERVIX 02/12/2018 8:36 AM CDT [facility] HPV Reflex if ASCUS? Yes 02/12/2018 8:36 AM CDT [facility] Specimen of unknown material (specimen) CERVIX UTERI STRUCTURE / Unknown Non-Phlebotomy Collection / Unknown 01/31/2018 8:53 AM CDT 01/31/2018 8:53 AM CDT us Gladys PIMENTEL PATHOLOGY/CYTOLOGY ORDERABL ES Final Result Performing Organization Address City/State/[facility] Co de Phone Number [facility] [address] [place] [address], from Last 3 Months or Most Recently Relevant to Health Maintenance Insurance MEDICAID [place] Care Teams Software Tools Build Engineer Relationship Specialty Start Date End Date Mitchell Merchant PAC [address] [place] [address] PCP - General Physician Bank Worker 04/18/23 Alessandra Chapa, CLOTH NEUTRALIZER, HAT CUTTER [address] [place] [address] Nurse Practitioner Advanced Practice Nurse 08/22/22
--- OUTSIDE RECORDS SUMMARY | 2025-01-06 02:42 | XMS_ITS | Data Portability ---
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 will send to L&D now induction timing dependent on BPs ( tonight vs @ 39 weeks ) Not available 08/14/2023 15:55:19 08/24/2023 08/24/2023 Visit for PPD check after delivery 4 days ago complicated by shoulder dystocia and transfer of baby [facility]. BA[facility] in a week for follow up. Not available 08/24/2023 15:26:46 09/03/2023 09/03/2023 PPD check is good today. No meds for now. Pumping, discussed vasectomy. AJ continues to improve. Left arm function progress is what we are hoping for. PP exam in 4 weeks Not available 09/03/2023 12:55:03 10/04/2023 10/04/2023 Normal PP exam today. Will start on OCPs with next period. Told her to keep us posted on AJs progress and that we will be cheering for him. Not available 10/04/2023 15:34:26 Plan of Treatment Reminders Order Date Submit Date Provider Last Modified By Organization Details Last Modified Time Details Appointments None recorded. Lab cytology report, thin prep, smear or scraping, cervical or vaginal 2023 [facility], [address], [address], [place], [address], 16:11:34 urinalysis , dipstick 2023 024 In-Office Order, Internal Use Only DO Not Attach Compendium DO Not Attach Compendium, Do Not Delete/merge, [id number] 15:55:21 urinalysis , dipstick 2023 024 In-Office Order, Internal Use Only DO Not Attach Compendium DO Not Attach Compendium, Do Not Delete/merge, [id number] 15:46:14 Referral None recorded. Procedures None recorded. Surgeries None recorded. Imaging None recorded. Medication Orders Junel Fe 24 1 mg-20 mcg (24)/75 mg (4) tablet 2023 024 [id number], [address] [place], [place], [id number], 15:34:48 Patient TargetsNo targets recorded. Patient Instructions Encounter Date Encounter Id Patient Instructions Last Modified By Organization Details Last Modified Time 08/24/2023 [id number] depression after childbirth: care instructions Not available 08/24/2023 15:26:48 stress in parent s of infants: care instructions Not available 08/24/2023 15:26:48 edinburgh depression scale* Not available 08/24/2023 15:26:50 09/03/2023 [id number] depression after childbirth: care instructions Not available 09/03/2023 12:55:04 stress in parent s of infants: care instructions Not available 09/03/2023 12:55:04 edinburgh depression scale* Not available 09/03/2023 12:55:05 10/04/2023 [id number] edinburgh depression scale* Not available 10/04/2023 15:33:42 Reason for Referral None Reported. Results Created Date Observation Date Name Description Value Unit Range Abnormal Flag Note LastModifiedBy Organization Detail LastModifiedTime 07/10/1907/10/2023 urina lysis , dipst ick Protein Negati ve Not Available In-Office Order Internal Use Only DO Not Attach Compendium DO Not Attach Compendium, Do Not Delete/merge, [id number] 07/09/2023 10:24:57 07/10/19 24 07/10/2023 urina lysis , dipst ick Glucose Negati ve Not Available In-Office Order Internal Use Only DO Not Attach Compendium DO Not Attach Compendium, Do Not Delete/merge, 07/09/2023 10:24:57 07/24/19 24 07/24/2023 urina lysis , dipst ick Protein Negati ve Not Available In-Office Order Internal Use Only DO Not Attach Compendium DO Not Attach Compendium, Do Not Delete/merge, 07/19/2023 10:42:44 07/24/19 24 07/24/2023 urina lysis , dipst ick Glucose Negati ve Not Available In-Office Order Internal Use Only DO Not Attach Compendium DO Not Attach Compendium, Do Not Delete/merge, [id number] 07/19/2023 10:42:44 07/31/1907/31/2023 urina lysis , dipst ick Protein Trace Not Available In-Office Order Internal Use Only DO Not Attach Compendium DO Not Attach Compendium, Do Not Delete/merge, 07/27/2023 12:07:25 07/31/1907/31/2023 urina lysis , dipst ick Glucose Negati ve Not Available In-Office Order Internal Use Only DO Not Attach Compendium DO Not Attach Compendium, Do Not Delete/merge, [id number] 07/27/2023 12:07:25 08/07/19 24 08/07/2023 urina lysis , dipst ick Protein Negati ve Not Available In-Office Order Internal Use Only DO Not Attach Compendium DO Not Attach Compendium, Do Not Delete/merge, [id number] 08/06/2023 10:58:04 08/07/19 24 08/07/2023 urina lysis , dipst ick Glucose Negati ve Not Available In-Office Order Internal Use Only DO Not Attach Compendium DO Not Attach Compendium, Do Not Delete/merge, [facility] 08/06/2023 10:58:04 08/14/19 24 08/14/2023 urina lysis , dipst ick Protein Negati ve Not Available In-Office Order Internal Use Only DO Not Attach Compendium DO Not Attach Compendium, Do Not Delete/merge, [facility] 08/13/2023 11:19:30 08/14/19 24 08/14/2023 urina lysis , dipst ick Glucose Negati ve Not Available In-Office Order Internal Use Only DO Not Attach Compendium DO Not Attach Compendium, Do Not Delete/merge, [id number] 08/13/2023 11:19:30 08/24/19 24 08/24/2023 edinb urgh postn atal depre ssion scale * Score 17 Not Available In-Office Order Internal Use Only DO Not Attach Compendium DO Not Attach Compendium, Do Not Delete/merge, [id number] 08/24/2023 12:23:57 09/03/19 24 09/03/2023 edinb urgh postn atal depre ssion scale * Score 10 Not Available In-Office Order Internal Use Only DO Not Attach Compendium DO Not Attach Compendium, Do Not Delete/merge, [facility] 09/03/2023 12:07:56 10/04/19 24 10/09/2023 IGP, RFX APTIM A HPV ASCU diagnosis: Commen t NEGAT KG FOR INTRA EPITH ELIAL LESIO N OR DARIAN SALAZAR . THIS SPECI MEN WAS RESCR EENED PART OF OUR QUALI TY CONTR OL PROGR AM. Not Available [facility] ([facility]) [address], [place], [address], 10/09/2023 16:11:34 10/04/19 24 10/09/2023 IGP, RFX APTIM A HPV ASCU specimen adequacy: Commen t Satis facto ry for evalu ation . Endoc ervic al and/o r squam ous metap lasti c cells (endo cervi feliberto compo nent) are prese nt. Not Available [facility] ([facility]) [address] [place], [address], 10/09/2023 16:11:34 10/04/19 24 10/09/2023 IGP, RFX APTIM A HPV ASCU clinician provided ICD10: Etelvina shin Z39.2 Not Available [facility] ([facility]) [address] [place], [address], 10/09/2023 16:11:34 10/04/19 24 10/09/2023 IGP, RFX APTIM A HPV ASCU performed by: Etelvina Beard, Cytot echno logis t (ASCP ) Not Available [facility] ([facility]) [address] [place], [address], 10/09/2023 16:11:34 10/04/19 24 10/09/2023 IGP, RFX APTIM A HPV ASCU QC reviewed by: Etelvina Carlton ams, Cytot echno logis t (ASCP ) Not Available [facility] ([facility]) [address] [place], [address], 10/09/2023 16:11:34 10/04/19 24 10/09/2023 IGP, RFX APTIM A HPV ASCU . . Not Available [facility] ([facility]) [address] [place], [address], 10/09/2023 16:11:34 10/04/19 24 10/09/2023 IGP, RFX APTIM A HPV ASCU note: Etelvina shin The Pap smear is a scree albert test desig magnolia to aid in the detec tion of bebo ligna nt and malig nant condi tions of the uteri ne cervi x. It is not a diagn ostic proce dure and shoul d not be used as the sole means of detec ting cervi feliberto cance r. Both false -posi tive and false -nega tive repor ts do occur . Not Available [facility] ([facility]) [address], [place], [address], 10/09/2023 16:11:34 10/04/19 24 10/09/2023 IGP, RFX APTIM A HPV ASCU test methodology: Commen t This liqui d based ThinP rep(R ) pap test was gonzalez merida with the use of an image guide edwar mckenna. Not Available [facility] ([facility]) [address] [place], [address], 10/09/2023 16:11:34 10/04/19 24 10/09/2023 IGP, RFX APTIM A HPV ASCU . Commen t The HPV DNA refle x crite elton were not met with this speci men resul t there fore, no HPV testi ng was perfo rmed. Not Available [facility] ([facility]) [address], [place], [address], 10/09/2023 16:11:34 10/04/19 24 10/04/2023 edinb urgh postn atal depre ssion scale * Score 12 Not Available In-Office Order Internal Use Only DO Not Attach Compendium DO Not Attach Compendium, Do Not Delete/merge, [id number] 10/04/2023 15:00:53 11/19/19 24 11/19/2023 Strep tococ cus pyoge pollo Ag [Pres ence] in Speci men by Immun oassa y streptococcu s pyogenes Ag [presence] in specimen by immunoassay NEG normal Rapid Strep Not Available Not Available 09/10/2024 11:50:26 11/19/19 24 11/19/2023 Strep tococ cus pyoge pollo Ag [Pres ence] in Speci men by Immun oassa y lot # and exp. date [id number] 1 normal LOT # AND EXP. DATE Not Available Not Available 09/10/2024 11:50:26 11/19/19 24 11/19/2023 Strep tococ cus pyoge pollo Ag [Pres ence] in Speci men by Immun oassa y int. QC acceptable? YES normal INT. QC ACCEP TABLE ? Not Available Not Available 09/10/2024 11:50:26 10/10/19 25 10/09/2024 CBC W Auto Diffe renti al panel - Blood leukocytes [#/volume] in blood by automated count 8.69 text: 4.00 - 12.00 10(3)/ mcL WBC 8.69 4.00 - 12.00 10(3) /mcL 10/09 12:30 PM CDT [facility] Not Available Not Available 10/16/2024 15:34:23 10/10/19 25 10/09/2024 CBC W Auto Diffe renti al panel - Blood erythrocytes [#/volume] in blood by automated count 4.68 text: 3.80 - 5.30 10(6)/ mcL RBC 4.68 3.80 - 5.30 10(6) /mcL 10/09 12:30 PM CDT [facility] Not Available Not Available 10/16/2024 15:34:23 10/10/19 25 10/09/2024 CBC W Auto Diffe renti al panel - Blood hemoglobin [mass/volume ] in blood 15.3 g/dL low: 12g/dL high: 15.8g/ dL HEMOG LOBIN (HGB) 15.3 12.0 - 15.8 g/dL 10/09 12:30 PM CDT [facility] Not Available Not Available 10/16/2024 15:34:23 10/10/19 25 10/09/2024 CBC W Auto Diffe renti al panel - Blood hematocrit [volume fraction] of blood by automated count 45.5 % low: 36%hig h: 47% HEMAT OCRIT (HCT) 45.5 36.0 - 47.0 % 10/09 12:30 PM CDT [facility] Not Available Not Available 10/16/2024 15:34:23 10/10/19 25 10/09/2024 CBC W Auto Diffe renti al panel - Blood MCV [entitic mean volume] in red blood cells by automated count 97.2 fL low: 82fLhi gh: 96fL high MCV 97.2 (H) 82.0 - 96.0 fL 10/09 12:30 PM CDT [facility] Not Available Not Available 10/16/2024 15:34:23 10/10/19 25 10/09/2024 CBC W Auto Diffe renti al panel - Blood MCH [entitic mass] by automated count 32.7 pg low: 26pghi gh: 34pg MCH 32.7 26.0 - 34.0 pg 10/09 12:[address] [facility] Not Available Not Available 10/16/2024 15:34:23 10/10/19 25 10/09/2024 CBC W Auto Diffe renti al panel - Blood MCHC [entitic mass/volume] in red blood cells by automated count 33.6 g/dL low: 31g/dL high: 36g/dL MCHC 33.6 31.0 - 36.0 g/dL 10/09 12:30 PM CDT [email or web address] Not Available Not Available 10/16/2024 15:34:23 10/10/19 25 10/09/2024 CBC W Auto Diffe renti al panel - Blood platelets [#/volume] in blood 297 text: 140 - 440 10(3)/ mcL PLATE LET COUNT 297 140 - 440 10(3) /mcL 10/09 12:30 PM CDT [facility] Not Available Not Available 10/16/2024 15:34:23 10/10/19 25 10/09/2024 CBC W Auto Diffe renti al panel - Blood erythrocyte [distwidth] in red blood cells by automated count 11.6 % low: 11.8%h igh: 15.5% low RDW 11.6 (L) 11.8 - 15.5 % 10/09 12:30 PM CDT [facility] Not Available Not Available 10/16/2024 15:34:23 10/10/19 25 10/09/2024 CBC W Auto Diffe renti al panel - Blood platelet [entitic mean volume] in blood by automated count 10 fL low: 9.7fLh igh: 12.4fL MPV 10.0 9.7 - 12.4 fL 10/09 12:[address] [facility] Not Available Not Available 10/16/2024 15:34:23 10/10/19 25 10/09/2024 CBC W Auto Diffe renti al panel - Blood neutrophils/ leukocytes in blood by automated count 58 % low: 47%hig h: 73% NEUTR OPHIL S 58.0 47.0 - 73.0 % 10/09 12:[address] [facility] Not Available Not Available 10/16/2024 15:34:23 10/10/19 25 10/09/2024 CBC W Auto Diffe renti al panel - Blood lymphocytes/ leukocytes in blood by automated count 34.9 % low: 18%hig h: 42% LYMPH OCYTE S 34.9 18.0 - 42.0 % 10/09 12:[address] [facility] Not Available Not Available 10/16/2024 15:34:23 10/10/19 25 10/09/2024 CBC W Auto Diffe renti al panel - Blood monocytes/le ukocytes in blood by automated count 4.7 % low: 4%high : 12% MONOC YTES 4.7 4.0 - 12.0 % 10/09 12:[address] [facility] Not Available Not Available 10/16/2024 15:34:23 10/10/19 25 10/09/2024 CBC W Auto Diffe renti al panel - Blood eosinophils/ leukocytes in blood by automated count 1.6 % low: 0%high : 5% EOSIN OPHIL S 1.6 0.0 - 5.0 % 10/09 12:[address] [facility] Not Available Not Available 10/16/2024 15:34:23 10/10/19 25 10/09/2024 CBC W Auto Diffe renti al panel - Blood basophils/le ukocytes in blood by automated count 0.8 % low: 0%high : 1% BASOP HILS 0.8 0.0 - 1.0 % 10/09 12:30 PM CDT [email or web address] Not Available Not Available 10/16/2024 15:34:23 10/10/19 25 10/09/2024 CBC W Auto Diffe renti al panel - Blood neutrophils [#/volume] in blood by automated count 5.04 text: 1.60 - 7.70 10(3)/ mcL ABSOL [place] NEUTR OPHIL S 5.04 1.60 - 7.70 10(3) /mcL 10/09 12:30 PM CDT [email or web address] Not Available Not Available 10/16/2024 15:34:23 10/10/19 25 10/09/2024 CBC W Auto Diffe renti al panel - Blood lymphocytes [#/volume] in blood by automated count 3.03 text: 1.30 - 3.20 10(3)/ mcL ABSOL [place] LYMPH OCYTE S 3.03 1.30 - 3.20 10(3) /mcL 10/09 12:30 PM CDT [email or web address] Not Available Not Available 10/16/2024 15:34:23 10/10/19 25 10/09/2024 CBC W Auto Diffe renti al panel - Blood monocytes [#/volume] in blood by automated count 0.41 text: 0.20 - 1.00 10(3)/ mcL ABSOL [place] MONOC YTES 0.41 0.20 - 1.00 10(3) /mcL 10/09 12:30 PM CDT [email or web address] Not Available Not Available 10/16/2024 15:34:23 10/10/19 25 10/09/2024 CBC W Auto Diffe renti al panel - Blood eosinophils [#/volume] in blood by automated count 0.14 text: 0.00 - 0.40 10(3)/ mcL ABSOL [place] EOSIN OPHIL 0.14 0.00 - 0.40 10(3) /mcL 10/09 12:30 PM CD[facility] Not Available Not Available 10/16/2024 15:34:23 10/10/19 25 10/09/2024 CBC W Auto Diffe renti al panel - Blood basophils [#/volume] in blood by automated count 0.07 text: 0.00 - 0.10 10(3)/ mcL ABSOL [place] BASOP HILS 0.07 0.00 - 0.10 10(3) /mcL 10/09 12:30 PM CDT [facility] Not Available Not Available 10/16/2024 15:34:23 10/10/19 25 10/09/2024 CBC W Auto Diffe renti al panel - Blood nucleated erythrocytes /leukocytes [ratio] in blood 0 NRBC PER 100 WBC 0 10/09 12:30 PM [facility] Not Available Not Available 10/16/2024 15:34:23 10/10/19 25 10/09/2024 CBC W Auto Diffe renti al panel - Blood interpretati on and review of laboratory results Abnorm al Not Available Not Available 15:34:23 10/10/19 25 10/09/2024 Lipid 1996 panel - Serum or Plasm a cholesterol [mass/volume ] in serum or plasma 131 mg/dL high: 200mg/ dL [place] L 131 <200 mg/dL 10/09 12:52 PM CD[facility] Not Available Not Available 10/16/2024 15:34:23 10/10/19 25 10/09/2024 Lipid 1996 panel - Serum or Plasm a triglyceride [mass/volume ] in serum or plasma 177 mg/dL high: 150mg/ dL high TRIGL YCERI JOHN 177 (H) <150 mg/dL 10/09 12:52 PM CDT [facility] Not Available Not Available 10/16/2024 15:34:23 10/10/19 25 10/09/2024 Lipid 1996 panel - Serum or Plasm a cholesterol in HDL [mass/volume ] in serum or plasma 39 mg/dL low: 40mg/d L low HDL [place] L 39 (L) >40 mg/dL 10/09 12:52 PM CDT [facility] Not Available Not Available 10/16/2024 15:34:23 10/10/19 25 10/09/2024 Lipid 1996 panel - Serum or Plasm a cholesterol in LDL [mass/volume ] in serum or plasma 57 mg/dL high: 130mg/ dL LDL 57 <130 mg/dL 10/09 12:52 PM CDT [facility] Not Available Not Available 10/16/2024 15:34:23 10/10/19 25 10/09/2024 Lipid 1995 panel - Serum or Plasm a cholesterol in VLDL [mass/volume ] in serum or plasma 35 mg/dL low: 10mg/d Lhigh: 50mg/d L VLDL 35 10 - 50 mg/dL 10/09 12:52 PM CDT [facility] Not Available Not Available 10/16/2024 15:34:23 10/10/19 25 10/09/2024 Lipid 1996 panel - Serum or Plasm a cholesterol. total/choles terol in HDL [mass ratio] in serum or plasma 3.4 low: 0high: 4.4 CHOL/ HDL RATIO 3.4 0.0 - 4.4 10/09 12:52 PM CDT [facility] Not Available Not Available 10/16/2024 15:34:23 10/10/19 25 10/09/2024 Lipid 1996 panel - Serum or Plasm a cholesterol non HDL [mass/volume ] in serum or plasma 92 mg/dL high: 130mg/ dL NON-H DL [place] L 92 <130 mg/dL 10/09 12:52 PM CDT [facility] Not Available Not Available 10/16/2024 15:34:23 10/10/19 25 10/09/2024 Lipid 1996 panel - Serum or Plasm a IS the patient required to BE fasting? Yes IS THE PATIE NT REQUI RED TO BE FASTI NG? Yes 10/09 12:52 PM CDT [facility] Not Available Not Available 10/16/2024 15:34:23 10/10/19 25 10/09/2024 Lipid 1996 panel - Serum or Plasm a has the patient been fasting? Yes HAS THE PATIE NT BEEN FASTI NG? Yes 10/09 12:52 PM CDT [facility] Not Available Not Available 10/16/2024 15:34:23 10/10/19 25 10/09/2024 Lipid 1996 panel - Serum or Plasm a interpretati on and review of laboratory results Abnorm al Not Available Not Available 15:34:23 10/10/19 25 10/09/2024 Compr ehens kg metab olic 2000 panel - Serum or Plasm a sodium [moles/volum e] in serum or plasma 138 mmol/ L low: 136mmo l/Lhig h: 145mmo l/L SODIU M 138 136 - 145 mmol/ L 10/09 12:52 PM CDT [facility] Not Available Not Available 10/16/2024 15:34:23 10/10/19 25 10/09/2024 Compr ehens kg metab olic 2000 panel - Serum or Plasm a potassium [moles/volum e] in serum or plasma 4.7 mmol/ L low: 3.5mmo l/Lhig h: 5.1mmo l/L POTAS SIUM 4.7 3.5 - 5.1 mmol/ L 10/09 12:52 PM CDT [facility] Not Available Not Available 10/16/2024 15:34:23 10/10/19 25 10/09/2024 Compr ehens kg metab olic 2000 panel - Serum or Plasm a chloride [moles/volum e] in serum or plasma 106 mmol/ L low: 98mmol /Lhigh : 107mmo l/L CHLOR KATHLEEN 106 98 - 107 mmol/ L 10/09 12:52 PM CDT [email or web address] Not Available Not Available 10/16/2024 15:34:23 10/10/19 25 10/09/2024 Compr ehens kg metab olic 1999 panel - Serum or Plasm a carbon dioxide, total [moles/volum e] in serum or plasma 25 mmol/ L low: 22mmol /Lhigh : 30mmol /L CO2, VENOU S 25 22 - 30 mmol/ L 10/09 12:52 PM CDT [email or web address] Not Available Not Available 10/16/2024 15:34:23 10/10/19 25 10/09/2024 Compr ehens kg metab olic 1999 panel - Serum or Plasm a anion gap in serum or plasma by calculation 11.7 mmol/ L high: 18mmol /L ANION GAP 11.7 <18.0 mmol/ L 10/09 12:52 PM CDT [email or web address] Not Available Not Available 10/16/2024 15:34:23 10/10/19 25 10/09/2024 Compr ehens kg metab olic 1999 panel - Serum or Plasm a glucose [mass/volume ] in serum or plasma 98 mg/dL low: 70mg/d Lhigh: 99mg/d L GLUCO SE 98 70 - 99 mg/dL 10/09 12:52 PM CDT [email or web address] Not Available Not Available 10/16/2024 15:34:23 10/10/19 25 10/09/2024 Compr ehens kg metab olic 1999 panel - Serum or Plasm a urea nitrogen [mass/volume ] in serum or plasma 14 mg/dL low: 5mg/dL high: 18mg/d L BUN 14 5 - 18 mg/dL 10/09 12:52 PM CDT [email or web address] Not Available Not Available 10/16/2024 15:34:23 10/10/19 25 10/09/2024 Compr ehens kg metab olic 1999 panel - Serum or Plasm a creatinine [mass/volume ] in serum or plasma 0.69 mg/dL low: 0.6mg/ dLhigh : 1mg/dL CREAT ININE , BLOOD 0.69 0.60 - 1.00 mg/dL 10/09 12:[address] [facility] Not Available Not Available 10/16/2024 15:34:23 10/10/19 25 10/09/2024 Compr Victrioens kg metab olic 1999 panel - Serum or Plasm a urea nitrogen/cre atinine [mass ratio] in serum or plasma 20 text: 12 - 20 ratio BUN/C REATI NINE RATIO 20 12 - 20 ratio 10/09 12:[address] [facility] Not Available Not Available 10/16/2024 15:34:23 10/10/19 25 10/09/2024 Compr Victrioens kg metab olic 2000 panel - Serum or Plasm a protein [mass/volume ] in serum or plasma 8.1 g/dL low: 6g/dLh igh: 8g/dL high TOTAL PROTE IN 8.1 (H) 6.0 - 8.0 g/dL 10/09 12:[address] [facility] Not Available Not Available 10/16/2024 15:34:23 10/10/19 25 10/09/2024 Compr Victrioens kg metab olic 2000 panel - Serum or Plasm a albumin [mass/volume ] in serum or plasma 4.5 g/dL low: 3.5g/d Lhigh: 5g/dL ALBUM IN 4.5 3.5 - 5.0 g/dL 10/09 12:[address] [facility] Not Available Not Available 10/16/2024 15:34:23 10/10/19 25 10/09/2024 Compr ehens kg metab olic 2000 panel - Serum or Plasm a albumin/glob ulin [mass ratio] in serum or plasma 1.3 low: 1high: 2.2 A/G RATIO 1.3 1.0 - 2.2 10/09 12:52 PM CDT [facility] Not Available Not Available 10/16/2024 15:34:23 10/10/19 25 10/09/2024 Compr ehens kg metab olic 1999 panel - Serum or Plasm a calcium [mass/volume ] in serum or plasma 9.1 mg/dL low: 8.7mg/ dLhigh : 10.5mg /dL CALCI UM 9.1 8.7 - 10.5 mg/dL 10/09 12:52 PM CDT [facility] Not Available Not Available 10/16/2024 15:34:23 10/10/19 25 10/09/2024 Compr ehens kg metab olic 1999 panel - Serum or Plasm a bilirubin.to sinai [mass/volume ] in serum or plasma 0.4 mg/dL low: 0.2mg/ dLhigh : 1.2mg/ dL T BILI 0.4 0.2 - 1.2 mg/dL 10/09 12:52 PM CD[facility] Not Available Not Available 10/16/2024 15:34:23 10/10/19 25 10/09/2024 Compr ehens kg metab olic 1999 panel - Serum or Plasm a aspartate aminotransfe rase [enzymatic activity/vol ume] in serum or plasma 21 U/L high: 43U/L SGOT (AST) 21 <43 U/L 10/09 12:52 PM CDT [facility] Not Available Not Available 10/16/2024 15:34:23 10/10/19 25 10/09/2024 Compr ehens kg metab olic 1999 panel - Serum or Plasm a alanine aminotransfe rase [enzymatic activity/vol ume] in serum or plasma 15 U/L high: 56U/L SGPT (ALT) 15 <56 U/L 10/09 12:52 PM CDT [facility] Not Available Not Available 10/16/2024 15:34:23 10/10/19 25 10/09/2024 Compr ehens kg metab olic 1999 panel - Serum or Plasm a alkaline phosphatase [enzymatic activity/vol ume] in serum or plasma 67 U/L low: 40U/Lh igh: 150U/L ALKAL INE PHOSP HATAS E 67 40 - 150 U/L 10/09 12:52 PM CDT [facility] Not Available Not Available 10/16/2024 15:34:23 10/10/19 25 10/09/2024 Compr ehens kg metab olic 2000 panel - Serum or Plasm a IS the patient required to BE fasting? Yes IS THE PATIE NT REQUI RED TO BE FASTI NG? Yes 10/09 12:52 PM CDT [facility] R LAB Not Available Not Available 10/16/2024 15:34:23 10/10/19 25 10/09/2024 Compr ehens kg metab olic 2000 panel - Serum or Plasm a has the patient been fasting? Yes HAS THE PATIE NT BEEN FASTI NG? Yes 10/09 12:52 PM CDT [facility] Not Available Not Available 10/16/2024 15:34:23 10/10/19 25 10/09/2024 Compr ehens kg metab olic 2000 panel - Serum or Plasm a glomerular filtration rate [volume rate/area] in serum, plasma or blood by creatinine-b ased formula (CKD-epi 2020)/1.73 sq M low: 60 GFR, ESTIM ATED >60 >=60 10/09 12:52 PM CDT [email or web address] R LAB Not Available Not Available 10/16/2024 15:34:23 10/10/1910/09/2024 Compr ehens kg metab olic 2000 panel - Serum or Plasm a glomerular filtration rate [volume rate/area] in serum, plasma or blood by creatinine-b ased formula (MDRD)/1.73 sq M among black population low: 60 GFR, EST. AFRIC AN >60 >=60 10/09 12:52 PM CDT [facility] Not Available Not Available 10/16/2024 15:34:23 10/10/19 25 10/09/2024 Compr ehens kg metab olic 2000 panel - Serum or Plasm a glomerular filtration rate [volume rate/area] in serum, plasma or blood by creatinine-b ased formula (MDRD)/1.73 sq M among non black population low: 60 GFR, EST. NONAF RICAN >60 >=60 10/09 12:52 PM CDT [facility] Not Available Not Available 10/16/2024 15:34:23 10/10/19 25 10/09/2024 Compr ehens kg metab olic 2000 panel - Serum or Plasm a interpretati on and review of laboratory results Abnorm al Not Available Not Available 15:34:23 Result Notes None recorded. 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 Procedures Surgical History Date Name Laterality Status Provider Name and Address Organization Details Recorded Time 4 Date of Last Pap Smear completed BRENDA Dalal - [facility] 10/09/2023 16:17:43 operation on labia completed BRENDA Dalal [place] - [facility] 08/10/2021 11:18:38 Imaging Results None recorded. Procedure Notes None recorded. Medical Equipment None Reported. Allergies No known drug allergies Medications Name Sig Start Date Stop Date Status Note LastModified by Organization Details LastModified Time amoxicillin 500 mg capsule TAKE 1 CAPSULE BY MOUTH THREE TIMES DAILY UNTIL GONE 08/10 completed Not Available Not Available Not Available buspirone 5 mg tablet TAKE 1 TABLET BY MOUTH DAILY NEEDED active Not Available Not Available No t Available trazodone 50 mg tablet TAKE 1 TO 2 TABLETS BY MOUTH EVERY NIGHT AT BEDTIME NEEDED FOR SLEEP 12/26 completed Not Available Not Available Not Available azithromyci n 250 mg tablet 08/10 completed Not Available Not Available Not Available hydrocodone 5 mg-acetamin ophen 325 mg tablet TAKE 1 OR 2 TABLETS BY MOUTH EVERY 6 HOURS NEEDED FOR PAIN FOR 3 DAYS 08/10 completed Not Available Not Available Not Available topiramate 25 mg tablet TAKE 1 TABLET BY MOUTH TWICE DAILY active Not Available Not Available No t Available metronidazo le 500 mg tablet TAKE 1 TABLET BY MOUTH TWICE DAILY FOR 7 DAYS 12/26 completed Not Available Not Available Not Available phentermine 37.5 mg tablet TAKE 1 TABLET BY MOUTH EVERY MORNING 02/13 completed Not Available Not Available Not Available acyclovir 400 mg tablet TAKE 1 TABLET BY MOUTH TWICE DAILY active Not Available Not Available No t Available sulfamethox azole 800 mg-trimetho prim 160 mg tablet TAKE 1 TABLET BY MOUTH TWICE DAILY FOR 7 DAYS active Not Available Not Available No t Available triamcinolo ne acetonide 0.1 % topical cream APPLY SPARINGLY TOPICALLY TO THE AFFECTED AREA TWICE DAILY active Not Available Not Available No t Available omeprazole 20 mg capsule,del ayed release TAKE 1 CAPSULE BY MOUTH DAILY 12/26 completed Not Available Not Available Not Available montelukast 10 mg tablet TAKE 1 TABLET BY MOUTH EVERY EVENING 08/10 completed Not Available Not Available Not Available ibuprofen 600 mg tablet TAKE 1 TABLET BY MOUTH EVERY 6 HOURS NEEDED FOR PAIN active Not Available Not Available No t Available methylpredn isolone 4 mg tablets in a dose pack USE DIRECTED ON PACKAGE 08/10 completed Not Available Not Available Not Available albuterol sulfate HFA 90 mcg/actuati on aerosol inhaler INHALE 2 PUFFS BY MOUTH EVERY 4 HOURS NEEDED WHEEZING OR COUGH active Not Available Not Available No t Available norethindro ne (contracept kg) 0.35 mg tablet TAKE 1 TABLET BY MOUTH EVERY DAY 02/13 completed Not Available Not Available Not Available clotrimazol e 1 % topical cream APPLY TO UNDER RIGHT ARM THREE TIMES DAILY FOR 10 DAYS 08/10 completed Not Available Not Available Not Available atomoxetine 25 mg capsule TAKE 1 CAPSULE BY MOUTH DAILY active Not Available Not Available No t Available bupropion HCl XL 150 mg 24 hr tablet, extended release TAKE 1 TABLET BY MOUTH EVERY MORNING 08/10 completed Not Available Not Available Not Available Spiriva with HandiHaler 18 mcg and inhalation capsules INHALE THE CONTENTS OF 1 CAPSULE VIA INHALATIO N DEVICE DAILY 02/13 completed Not Available Not Available Not Available Aurovela 24 Fe 1 mg-20 mcg (24)/75 mg (4) tablet TAKE 1 TABLET BY MOUTH EVERY DAY active Not Available Not Available No t Available Vitals Date Recorded Body weight Provider Name an d Address Organization Details Last Updated DateTime 08/07/2023 172970.651737 g Jessica Schmidt MD Attn: [address] [place], [address], [facility] 08/07/2023 15:46:01 Date Recorded Body height Body mass index (BMI) Systolic And Diastolic Provider Name and Address Organization Details Last Updated DateTime 08/07/2023 162.56 cm 41.9 kg/m2 122/84 mm[Hg] BRENDA Dalal [facility] 08/07/2023 15:37:15 Date Recorded Body weight Provider Name an d Address Organization Details Last Updated DateTime 08/14/2023 356807.40615 g Jessica Schmidt MD Attn: [address] [place], [address], [facility] 08/14/2023 15:54:05 Date Recorded Body height Body mass index (BMI) Systolic And Diastolic Provider Name and Address Organization Details Last Updated DateTime 08/14/2023 162.56 cm 42.4 kg/m2 146/102 mm[Hg] BRENDA Dalal [facility] 08/14/2023 15:39:24 Date Recorded Body weight Provider Name an d Address Organization Details Last Updated DateTime 08/24/2023 364691.4837 g Rand Macias RN [facility] 10/2023 12:04:28 Date Recorded Body height Body mass index (BMI) Systolic And Diastolic Provider Name and Address Organization Details Last Updated DateTime 08/24/2023 162.56 cm 40 kg/m2 140/92 mm[Hg] BRENDA Dalal [place] [facility] 08/24/2023 12:22:25 Date Recorded Body height Body mass index (BMI) Body weight Systolic And Diastolic Provider Name and Address Organization Details Last Updated DateTime 09/03/2023 162.56 cm 38 kg/m2 458565.34 g 144/90 mm[Hg] BRENDA Dalal [facility] 09/03/2023 12:12:43 Date Recorded Body height Body mass index (BMI) Body weight Systolic And Diastolic Provider Name and Address Organization Details Last Updated DateTime 10/04/2023 162.56 cm 38.1 kg/m2 667007.51 g 138/96 mm[Hg] BRENDA Dalal [facility] 10/04/2023 15:07:00 Social History Question Answer Notes LastModified by Organizat ion Details LastModified Time Tobacco Smoking Status Former Smoker BRENDA Dalal [facility] 08/10/2021 11:18:05 In The 14 Days Before Symptom Onset, Have You Had Close Contact With A Laboratory-confirm ed COVID-19 While That Case Was Ill? No Information n ot available 08/10/2021 In The 14 Days Before Symptom Onset, Have You Had Close Contact With A Person Who Is Under Investigation For COVID-19 While That Person Was Ill? No Information not available 08/10/2021 Have You Been To An Area Known To Be High Risk For COVID-19? No Information not available 08/10/2021 What Was The Date Of Your Most Recent Tobacco Screening? 02/21/2023 Information not available 02/21/2023 How Many Children Do You Have? 0 Information not available 08/10/2021 What Is Your Current Pack Years? 10packyears Information not available 08/10/2021 Do You Use Protection During Sex? No Information not available 08/10/2021 Are You Sexually Active? Yes Information not available 08/10/2021 Has Tobacco Cessation Counseling Been Provided? No Information not available 08/10/2021 Sex: Female Functional Status Question Answer Note LastModified by Organizat ion Details LastModified Time Do you use any illicit or recreational drugs? Yes THC Information not available 08/10/2021 Do you or have you ever used any other forms of tobacco or nicotine? No Information not available 08/10/2021 What is your level of alcohol consumption? None Information not available 08/10/2021 Mental Status None recorded. Family History Relationship Description Onset Age of this Age Resolved Age Notes LastModified by Organization Details LastModified Time Father Diabetes mellitus [email or web address] Not available 2021 11:17:29 Medical History Condition Response Kidney or Bladder Problems Asthma Y Gynecological History Statement/Question Response Flow Moderate Sexually Active? Y On BCP's at Conception? N Menses Monthly Y STIs/STDs Y HPV Vaccine Y Date of Last Pap Smear 10/04/2023 Sexual Problems? N Current Control Method None Age at Menarche 13 LMP Unknown Obstetrics History GPAL:G 3 P 1 0 1 1 Type Value Full Term 1 Spontaneous 1 Living 1 Total 3 Immunizations Vaccine Type Date Status Note Provider Nam e and Address Organization Details Recorded Time OPV 7 completed Karly Mayberry [place] [facility] 03/27/2022 17:22:14 Hep A, adult 4 completed [place]arly [place] [facility] 03/27/2022 17:22:14 pneumococcal polysaccharide PPV23 8 completed [place]arly Mayberry [place] [facility] 03/27/2022 17:22:14 MMR 8 completed [place]arly [place]berry [place] [facility] 03/27/2022 17:22:14 COVID-19, mRNA, LNP-S, PF, 30 mcg/0.3 mL dose 1 completed [place]arly [place] [facility] 03/27/2022 17:22:14 Hib, unspecified formulation 8 completed [place]arly [place] [facility] 03/27/2022 17:22:14 meningococcal MCV4, unspecified formulation 2 completed Karly Shawanda, [place] [facility] 03/27/2022 17:22:14 HPV, quadrivalent 8 completed Karly Shawanda, [place] [facility] 03/27/2022 17:22:14 COVID-19, mRNA, LNP-S, PF, 30 mcg/0.3 mL dose 1 completed Karly Shawanda, [place] [facility] 03/27/2022 17:22:14 Td (adult), 5 Lf tetanus toxoid, preservative free, adsorbed 8 completed Karly Shawanda, [place] [facility] 03/27/2022 17:22:14 Hep B, adolescent or pediatric 7 completed Karly Shawanda, [place] [facility] 03/27/2022 17:22:14 OPV 6 completed Karly Shawanda, [place] [facility] 03/27/2022 17:22:14 Tdap 8 completed Karly Shawanda, [place] [facility] 03/27/2022 17:22:14 Hep B, adolescent or pediatric 6 completed Karly Shawanda, [place] [facility] 03/27/2022 17:22:14 DTP 6 completed Karly Sahwanda, [place] [facility] 03/27/2022 17:22:14 HPV, quadrivalent 7 completed Karly Shawanda, [place] [facility] 03/27/2022 17:22:14 DTP-Hib 6 completed Karly Shawanda, [place] [facility] 03/27/2022 17:22:14 Hep A, adult 8 completed Karly Shawanda, [place] [facility] 03/27/2022 17:22:14 COVID-19, mRNA, LNP-S, PF, 30 mcg/0.3 mL dose 1 completed Karly Shawanda, [place] [facility] 03/27/2022 17:22:15 Influenza, split virus, quadrivalent, PF 8 completed Karly Shawanda, [place] [facility] 03/27/2022 17:22:15 DTP-Hib 7 completed Karly Shawanda, [place] [facility] 03/27/2022 17:22:15 Influenza, recombinant, quadrivalent, PF 8 completed Karly Shawanda, [place] [facility] 03/27/2022 17:22:15 Hep B, adolescent or pediatric 6 completed Karly Shawanda, [place] [facility] 03/27/2022 17:22:15 Influenza, split virus, quadrivalent, PF 0 completed Karly Shawanda, [place] [facility] 03/27/2022 17:22:15 Tdap 2 completed Karly Shawanda, [place] [facility] 03/27/2022 17:22:15 Hib, unspecified formulation 6 completed Karly Shawanda, [place] [facility] 03/27/2022 17:22:15 DTaP 8 completed Karly Shawanda, [place] [facility] 03/27/2022 17:22:15 OPV 6 completed Karly Shawanda, [place] [facility] 03/27/2022 17:22:15 Tdap 2 completed Karly Shawanda, [place] [facility] 03/27/2022 17:22:15 Hep A, adult 8 completed Karly Shawanda, [place] [facility] 03/27/2022 17:22:15 HPV, quadrivalent 7 completed Karly Shawanda, [place] [facility] 03/27/2022 17:22:15 Tdap 4 completed Jessica Schmidt MD Attn: Accounting[address] [facility], [place], [address], [place] [facility] 07/10/2023 15:51:14 Past Encounters Encounter ID Performer Location Encounter Start Date Encounter Closed Date Diagnosis/Indication Diagnosis SNOMED-CT Code Diagnosis ICD10 Code Diagnosis Note [id number] MD Gagan Lim [address] [facility] [place] [address] 08/10/2021 10:47:30 08/11/2021 07:44:06 Normal 97804579 Z34.90 Gynecologi c examination 37025376 Z01.227 [id number] MD Gagan Lim [address] [facility] [place] [address] 08/30/2021 13:58:14 08/31/2021 06:38:44 Normal [id number] Z34.90 [id number] MD Gagan Lim [address] [place] [address] 09/20/2021 13:51:27 09/21/2021 06:43:40 Normal [id number] Z34.90 [id number] MD Gagan Lim [address] [place] [address] 10/18/2021 13:57:51 10/18/2021 21:13:05 Normal [id number] Z34.90 [id number] MD Gagan Lim [address] [place] [address] 11/15/2021 10:38:02 11/16/2021 15:42:29 Normal [id number] Z34.90 [id number] MD Gagan Lim [address] [facility] [place] [address] 12/06/2021 11:09:52 12/07/2021 08:40:53 Normal [id number] Z34.90 [id number] MD Gagan Lim [address] [place] [address] 12/27/2021 11:43:24 12/28/2021 08:37:53 Normal [id number] Z34.90 [id number] MD Gagan Lim [address] [place] [address] 01/11/2022 11:12:22 01/12/2022 08:47:15 Normal [id number] Z34.90 [id number] MD Gagan Lim 14 OB [address] [facility] [place] [address] 01/17/2022 14:28:29 01/18/2022 09:31:26 Normal 77761768 Z34.90 Administra tion of diphtheria, pertussis, and tetanus vaccine 051795080 Z23 [id number] MD Gagan Lim 14 OB [address] [facility] [place] [address] 01/23/2022 14:45:12 01/24/2022 09:26:37 Normal [id number] Z34.90 [id number] MD Gagan Lim 14 OB [address] [facility] [place] [address] 02/07/2022 10:48:56 02/08/2022 09:39:48 Normal [id number] Z34.90 [id number] MD Gagan Lim 14 OB [address] [facility] [place] [address] 02/28/2022 11:13:57 03/02/2022 09:52:52 care 715227518 Z39.2 depression 58 745846 F53.0 Contracept ion care management 219768224 Z30.9 [id number] MD Gagan Lmi 14 OB [address] [facility] [place] [address] 03/28/2022 15:22:05 03/29/2022 14:07:28 care [id number] Z39.2 [id number] MD Gagan Lim 14 OB [address] [facility] [place] [address] 12/26/2022 15:28:56 12/30/2022 11:26:24 [id number] Z33.1 Early stag e of [id number] Z34.90 [id number] MD Gagan Lim 14 OB [address] [facility] [place] [address] 02/21/2023 10:37:58 02/22/2023 08:51:20 Normal [id number] Z34.90 [id number] MD Gagan Lim 14 OB [address] [facility] [place] [address] 03/13/2023 15:40:43 03/14/2023 11:53:35 Normal [id number] Z34.90 [id number] MD Gagan Lim 14 OB [address] [facility] [place] [address] 04/03/2023 15:25:43 04/10/2023 12:01:15 Normal [id number] Z34.90 [id number] MD Gagan Lim 14 OB [address] [facility] [place] [address] 05/01/2023 15:42:08 05/02/2023 11:53:12 Normal [id number] Z34.90 [id number] MD Gagan Lim 14 OB [address] [facility] [place] [address] 05/29/2023 09:33:07 05/30/2023 10:49:18 Normal [id number] Z34.90 [id number] MD Gagan Lim 14 OB [address] [facility] [place] [address] 06/19/2023 15:32:06 06/20/2023 09:08:57 Normal [id number] Z34.90 [id number] MD Gagan Lim 14 OB [address] [facility] [place] [address] 07/10/2023 15:16:26 07/11/2023 13:45:15 Normal [id number] Z34.90 Administra tion of diphtheria, pertussis, and tetanus vaccine 936396253 Z23 [id number] MD Gagan Lim 14 OB [address] [facility] [place] [address] 07/24/2023 15:15:39 07/30/2023 15:04:58 Normal [id number] Z34.90 [id number] MD Gagan Lim 14 OB [address] [facility] [place] [address] 07/31/2023 15:34:51 08/01/2023 11:16:37 Normal [id number] Z34.90 [id number] MD Gagan Lim 14 OB [address] [facility] [place] [address] 08/07/2023 15:30:23 08/09/2023 19:49:15 Normal [id number] Z34.90 [id number] MD Gagan Lim 14 OB [address] [facility] [place] [address] 08/14/2023 15:32:10 08/15/2023 10:26:31 Normal [id number] Z34.90 [id number] MD Gagan Lim 14 OB [address] [facility] [place] [address] 08/24/2023 11:35:47 08/27/2023 09:53:52 depression 02521823 F53.0 [id number] MD Gagan Lim 14 [address] [facility] [place] [address] 09/03/2023 12:00:11 09/04/2023 12:36:27 care [id number] Z39.2 depression 58 001099 F53.0 [id number] MD Gagan iLm 14 OB [address] [facility] [place] [address] 10/04/2023 14:57:49 10/11/2023 10:23:04 care 129548534 Z39.2 Contracept ion care management 982028609 Z30.9 Health Concerns Section Related Observation LastModified by Organization Detai ls LastModified Time None Recorded Concern Status LastModified by Organization Details LastModified Time None Recorded Advance Directives Directive None Recorded Payers Insurance Date Sequence Insurance Name Policy Number Policy Childs Covered Member ID Childs Member ID Guarantor Name 10/11/2023 1 [facility] (MEDICAID HMO) [id number] Alley Nicholas [id number] Alley Nicholas Notes Date Note Type Note Provider Name and Address Organization Details Recorded Time 08/24/2023 text/html Alley and her here 4 days after delivery of their son KING on 08/20/23. The delivery was complicated by a severe shoulder dystocia. KING [facility] delivery. They report that he is no longer intubated and has not had any seizures. They told me that he has a MRI upcoming to look for any other possible issues. Alley does not seem to have any post depression issues at this time. She seems to be coping appropriately considering the situation. She said she keeps asking herself if she should have paid for another US later in her . ( When she was in her third trimester she asked about another US, I offered to order her one, but mentioned it might not get covered by her insurance, so she decided not to do it.) I reassured her it was unlikely doing another US at 32 weeks or so would have changed the outcome. I told her even an US performed a few days before delivery would likely have had over a pound range of error either way. We had a lengthy discussion about the risks for shoulder dystocia and why it ended up being a surprise. (Her max fundal height was only 36cm, my EFW was between 7 1/2 - 8 lbs, she passed her sugar test, and she only pushed 30 minutes before delivering the head.) I told her that it is easy to have what ifs whenever something like this happens. What if the baby had been breech? What if the baby's heart rate had gone down earlier in the day and not come up? What if she had pushed for two hours and the baby was still undelivered? In all these cases we would have likely done a . Sadly, none of them occurred. Although we had discussed the moves needed to deliver KING just after his delivery, I explained them in detail again for her today. ( Deirdre, supra pubic pressure, wood screw, reverse wood screw, and posterior arm delivery) She asked what would have happened if he still hadn't delivered. I told her in some texts breaking or cutting the clavicle is needed in order to get the baby out. Physically she seems to be doing well, no real pain issues with either her stitches or cramping. We will end up seeing her back in a week for another PPD check. She said she would keep me posted on AJ's progress. Jessica Schmidt MD Attn: Accounting[address] [place], [address], [place] [facility] 08/24/2023 15:27:10 09/03/2023 text/html 2 weeks out from second vaginal delivery ( Boy -KING) [place] severe shoulder dystocia ( 2 1/2 minutes from head to baby)Initial I believe was zero.: baby was transferred to [facility]. It sounds like one left brachial plexus nerve root was injured, but brain MRIs have been reassuring. SHe is pumping. Minimal bleeding / cramping. BP slightly elevated, but asymptomatic. Discussed PPD issues, declines meds at this time. Told her to call if something changes. Jessica Schmidt MD Attn: Accounting[address] , [place], [address], [facility] 09/03/2023 12:55:26 10/04/2023 text/html 6 week post part um check after second vaginal delivery on 08/20/23 Baby KING ( 9 lbs 15 oz) had surprise severe shoulder dystocia. Was coded and transferred to [facility]. Was just released from hospital. Left arm movement is essentially absent and it appears he will need some surgeries.Alley says brain function appears normal thus far, but obviously he'll be followed closely. she is interested in OCPs. ( no longer pumping) no PPD issues Jessica Schmidt MD Attn: Accounting[address] [facility], [place], [address], [facility] 10/04/2023 15:34:43 OBGyn Episode Ob Episode Information Episode Created Date Number of Fetuses Patient Bloodtype Patient rh Status Prepregnancy Weight lbs Domestic Partner Domestic Partner Phone Father Name Hr Business Partner Consultant Status 02/22/20 23 1 O Positive CLOSED Fetus Data First Name Last Name Admitted to NICU Weight (g) Sex Living Outcome Pediatric Complications Fetus ID Race Codes Race Delivery Type Eagle avina jr true [phone] M true Full Term shoulder dystocia [id number] [id number] White Vaginal Obie Calculation Initial Obie Date Initial Exam Date Initial Exam Provider Initial Ultrasound Date Last Menstrual Period Date Ultra Sound Weeks Gestation 08/24/2023 02/21/2023 03/21/2023 11/17/2022 18 Eighteen To Twenty Week Obie Update Ultra Sound Date Fundal Height At Umbil Quickening Date Ultra Sound Latest Weeks Gestation Final Obie Confirmed By Final Obie Confirmed Date Final Obie Date Ultra Sound Latest Days Gestation 0 03/13/2023 08/24/19 24 0 Pre- Flowsheet Flowsheet Date 02/21/2023 Mcpherson Score Blood Edema Fundus Height Fundus Units Glucose Ketones Leukocytes Nitrite Labor Signs Protein Cervic Dilation Cervic Effacement Cervic Station 13 wks 0cm 0% -4 Type Weight in lbs Pre/Post Dialysis Refused With clothes 208.166712710028 BP Diastolic BP Location Tested BP Systolic BP Type 84 130 sitting Fetus Heart Rate Present A 145 Present Fetus Movement Comments Second , normal NOB exam.HAd a Thrive US that puts her at 13 5/7 weeks todayFirst induced post datesdiscussed constipation today: will try raisins and apple juice to start Flowsheet Date 03/13/2023 Mcpherson Score Blood Edema Fundus Height Fundus Units Glucose Ketones Leukocytes Nitrite Labor Signs Protein Cervic Dilation Cervic Effacement Cervic Station none 16 wks none neg Type Weight in lbs Pre/Post Dialysis Refused With clothes 213.071781962402 BP Diastolic BP Location Tested BP Systolic BP Type 76 114 sitting Fetus Heart Rate Present A 143 Present Fetus Movement Comments 16 weeks, doing wellboy per genetic testing KING Guillermo Junior...plan anatomy US in 2 weeks, back here in 3. Flowsheet Date 04/03/2023 Mcpherson Score Blood Edema Fundus Height Fundus Units Glucose Ketones Leukocytes Nitrite Labor Signs Protein Cervic Dilation Cervic Effacement Cervic Station none 19 wks none neg Type Weight in lbs Pre/Post Dialysis Refused With clothes 215.517735249008 BP Diastolic BP Location Tested BP Systolic BP Type 70 106 sitting Fetus Heart Rate Present A 154 Present Fetus Movement Comments doing well, anatomy US looks great.will leave EDC at 08/24 Flowsheet Date 05/01/2023 Mcpherson Score Blood Edema Fundus Height Fundus Units Glucose Ketones Leukocytes Nitrite Labor Signs Protein Cervic Dilation Cervic Effacement Cervic Station none 23 wks none neg Type Weight in lbs Pre/Post Dialysis Refused With clothes 218.140434419538 BP Diastolic BP Location Tested BP Systolic BP Type 80 104 sitting Fetus Heart Rate Present A 156 Present Fetus Movement A Yes Comments 23 weeks doing well. DIscuss ed limiting caffeine in pregnancyplan sugar test at next visit Flowsheet Date 05/29/2023 Mcpherson Score Blood Edema Fundus Height Fundus Units Glucose Ketones Leukocytes Nitrite Labor Signs Protein Cervic Dilation Cervic Effacement Cervic Station none 26 wks none neg Type Weight in lbs Pre/Post Dialysis Refused With clothes 228.415426453761 BP Diastolic BP Location Tested BP Systolic BP Type 82 128 sitting Fetus Heart Rate Present A 148 Present Fetus Movement A Yes Comments 27 weeks doing well, no issu esgood spiritsdoing sugar test Flowsheet Date 06/19/2023 Mcpherson Score Blood Edema Fundus Height Fundus Units Glucose Ketones Leukocytes Nitrite Labor Signs Protein Cervic Dilation Cervic Effacement Cervic Station 30 cm Type Weight in lbs Pre/Post Dialysis Refused With clothes 230.859021400381 BP Diastolic BP Location Tested BP Systolic BP Type 80 134 sitting Fetus Heart Rate Present A 145 Present Fetus Movement A Yes Comments 30 weeks doing welldiscussed heartburn choicespassed sugar test Flowsheet Date 07/10/2023 Mcpherson Score Blood Edema Fundus Height Fundus Units Glucose Ketones Leukocytes Nitrite Labor Signs Protein Cervic Dilation Cervic Effacement Cervic Station none 32 cm none neg Type Weight in lbs Pre/Post Dialysis Refused With clothes 237.777046939593 BP Diastolic BP Location Tested BP Systolic BP Type 76 128 sitting Fetus Heart Rate Present A 142 Present Fetus Movement A Yes Comments 33 weeks doing well. plan GB S at next visitdiscussed 39 week inductiondiscussed advantages of rsv vaccine Flowsheet Date 07/24/2023 Mcpherson Score Blood Edema Fundus Height Fundus Units Glucose Ketones Leukocytes Nitrite Labor Signs Protein Cervic Dilation Cervic Effacement Cervic Station none 34 cm none neg Type Weight in lbs Pre/Post Dialysis Refused With clothes 240.657722272763 BP Diastolic BP Location Tested BP Systolic BP Type 76 124 sitting Fetus Heart Rate Present A 142 Present Fetus Movement A Yes Comments 35 4/7 weeks doing wellon ac yclovir, GBS positive in pastcervix check at next visit Flowsheet Date 07/31/2023 Mcpherson Score Blood Edema Fundus Height Fundus Units Glucose Ketones Leukocytes Nitrite Labor Signs Protein Cervic Dilation Cervic Effacement Cervic Station Type Weight in lbs Pre/Post Dialysis Refused With clothes 241.47185468379 BP Diastolic BP Location Tested BP Systolic BP Type 84 132 sitting Fetus Heart Rate Present Fetus Movement Comments Flowsheet Date 08/07/2023 Mcpherson Score Blood Edema Fundus Height Fundus Units Glucose Ketones Leukocytes Nitrite Labor Signs Protein Cervic Dilation Cervic Effacement Cervic Station none 35 cm Type Weight in lbs Pre/Post Dialysis Refused With clothes 244.044152925887 BP Diastolic BP Location Tested BP Systolic BP Type 84 122 sitting Fetus Heart Rate Present A 146 Present Fetus Movement A Yes Comments 37 weeks, was 1 cm last week at check timelabor instructionsdiscussed 08/17 vs 08/19 for induction if still here next week Flowsheet Date 08/14/2023 Mcpherson Score Blood Edema Fundus Height Fundus Units Glucose Ketones Leukocytes Nitrite Labor Signs Protein Cervic Dilation Cervic Effacement Cervic Station none 36 cm none neg Type Weight in lbs Pre/Post Dialysis Refused With clothes 247.101173151743 BP Diastolic BP Location Tested BP Systolic BP Type 102 146 sitting Fetus Heart Rate Present A 142 Present Fetus Movement A Yes Comments 38+ weeks, second baby.[place] marko BP today, will send to L&D for BPsMAy need to be induced tonight or, if BPs normal will plan for Sunday night cytotec Flowsheet Date 08/24/2023 Mcpherson Score Blood Edema Fundus Height Fundus Units Glucose Ketones Leukocytes Nitrite Labor Signs Protein Cervic Dilation Cervic Effacement Cervic Station Type Weight in lbs Pre/Post Dialysis Refused With clothes 233.44644907646 BP Diastolic BP Location Tested BP Systolic BP Type 92 140 sitting Fetus Heart Rate Present Fetus Movement Comments Flowsheet Date 09/03/2023 Mcpherson Score Blood Edema Fundus Height Fundus Units Glucose Ketones Leukocytes Nitrite Labor Signs Protein Cervic Dilation Cervic Effacement Cervic Station Type Weight in lbs Pre/Post Dialysis Refused With clothes 221.035664641615 BP Diastolic BP Location Tested BP Systolic BP Type 90 R arm 144 sitting Fetus Heart Rate Present Fetus Movement Comments Menstrual History Last Menstrual Date Menses Monthly On Bcp Conception Prior Menses Frequency Hcg Plus Date Menarche Onset Age 0511/17/2022 false Genetic Screening And Infection History Question Response Note Patient's Age Will Be 35 Years Or Older At Estim ated Date of Delivery false Thalassemia (Omani, Malian, Mediterranean, Or Background): MCV < 80 false Neural Tube Defect (Meningomyelocele, Spina Bifi da, Or Anencephaly) false Congenital Heart Defect false Down Syndrome false Maciel-Sachs (eg, Samaritan, Cajun, [place]ander-[place] Citizen) f alse Robert Disease false Sickle Cell Disease Or Trait () false Hemophilia Or Other Blood Disorders false Muscular Dystrophy false Cystic Fibrosis false Lina's Chorea false Mental Retardation/Autism false If Yes, Was Person Tested For Fragile X? false Other Inherited Genetic Or Chromosomal Disorder false Maternal Metabolic Disorder (eg, Type 1 Diabetes , PKU) false Patient Or Baby's Father Had A Child With Defects Not Listed Above false Recurrent Loss, Or A Stillbirth false Medications (including Suppl ements, Vitamins, Herbs, OTC Drugs), Illicit/Recreational Drugs, Alcohol false If Yes, Agent(s) And Strength/Dosage false Any Other Genetic History false Live With Someone With TB Or Exposed To TB false Patient Or Partner Has History Of Genital Herpes false Rash Or Viral Illness Since Last Menstrual Perio d false History Of STD, Gonorrhea, Chlamydia, HPV, Syphi lis false Other Infection History false History of HIV false History of Hepatitis false Prior GBS-infected child false Delivery Information Delivery Date Delivery Type Labor Anesthesia Weeks Gestation Incision Type Labor Labor Length Hrs Delivered By Post Complications Tubal Sterilization Discharge Date Comments 4 Induce d 39.3 false Jessica Schmidt MD Discharge Information Feeding Method Contraceptive Method Maternal HG B and HCT Levels Breast Ob Episode Information Episode Created Date Number of Fetuses Patient Bloodtype Patient rh Status Prepregnancy Weight lbs Domestic Partner Domestic Partner Phone Father Name Hr Business Partner Consultant Status 08/10/19 22 1 O Positive CLOSED Fetus Data First Name Last Name Admitted to NICU Weight (g) Sex Living Outcome Pediatric Complications Fetus ID Race Codes Race Delivery Type false [id number] [phone] F true Full Term [id number] White Vaginal Obie Calculation Initial Obie Date Initial Exam Date Initial Exam Provider Initial Ultrasound Date Last Menstrual Period Date Ultra Sound Weeks Gestation 02/11/2022 08/10/2021 09/06/2021 05/07/2021 17 Eighteen To Twenty Week Obie Update Ultra Sound Date Fundal Height At Umbil Quickening Date Ultra Sound Latest Weeks Gestation Final Obie Confirmed By Final Obie Confirmed Date Final Obie Date Ultra Sound Latest Days Gestation 11/09/19 22 26 09/20/2021 02/12/20 22 1 Pre- Flowsheet Flowsheet Date 08/10/2021 Mcpherson Score Blood Edema Fundus Height Fundus Units Glucose Ketones Leukocytes Nitrite Labor Signs Protein Cervic Dilation Cervic Effacement Cervic Station 12 wks 0cm 0% -4 Type Weight in lbs Pre/Post Dialysis Refused With clothes 181.913653537421 BP Diastolic BP Location Tested BP Systolic BP Type 80 116 sitting Fetus Heart Rate Present A 165 Present Fetus Movement Comments Normal NOB exam for 13 weeks first pregnancydiscussed her Hep C hx ( drug abuse distant past) as well as 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) Flowsheet Date 08/30/2021 Mcpherson Score Blood Edema Fundus Height Fundus Units Glucose Ketones Leukocytes Nitrite Labor Signs Protein Cervic Dilation Cervic Effacement Cervic Station none 16 wks none neg Type Weight in lbs Pre/Post Dialysis Refused With clothes 183.745739444373 BP Diastolic BP Location Tested BP Systolic BP Type 76 112 sitting Fetus Heart Rate Present A 155 Present Fetus Movement Comments 16 weeks doing wellprenatal labs ok, still needs an HIVUS in 2 weeks Flowsheet Date 09/20/2021 Mcpherson Score Blood Edema Fundus Height Fundus Units Glucose Ketones Leukocytes Nitrite Labor Signs Protein Cervic Dilation Cervic Effacement Cervic Station none 19 wks none neg Type Weight in lbs Pre/Post Dialysis Refused With clothes 187.506342583678 BP Diastolic BP Location Tested BP Systolic BP Type 80 126 sitting Fetus Heart Rate Present A 156 Present Fetus Movement Comments Girl on US, EDC confirmed - declines MSAFPno new issuesgood spiritswill need some f/u US pics after next visit Flowsheet Date 10/18/2021 Mcpherson Score Blood Edema Fundus Height Fundus Units Glucose Ketones Leukocytes Nitrite Labor Signs Protein Cervic Dilation Cervic Effacement Cervic Station none 22 cm none neg Type Weight in lbs Pre/Post Dialysis Refused With clothes 192.688482689026 BP Diastolic BP Location Tested BP Systolic BP Type 76 124 sitting Fetus Heart Rate Present A 155 Present Fetus Movement A Yes Comments doing well, no issues except a little constipation; stool softeners discussedf/u US ordered, sugar test next time Flowsheet Date 11/15/2021 Mcpherson Score Blood Edema Fundus Height Fundus Units Glucose Ketones Leukocytes Nitrite Labor Signs Protein Cervic Dilation Cervic Effacement Cervic Station none 26 cm none neg Type Weight in lbs Pre/Post Dialysis Refused With clothes 200.764819706374 BP Diastolic BP Location Tested BP Systolic BP Type 74 120 sitting Fetus Heart Rate Present A 145 Present Fetus Movement A Yes Comments doing sugar test todaygood s piritsUS was good, discussed echogenic focus Flowsheet Date 12/06/2021 Mcpherson Score Blood Edema Fundus Height Fundus Units Glucose Ketones Leukocytes Nitrite Labor Signs Protein Cervic Dilation Cervic Effacement Cervic Station none 28 cm none neg Type Weight in lbs Pre/Post Dialysis Refused With clothes 204.716163622729 BP Diastolic BP Location Tested BP Systolic BP Type 76 124 sitting Fetus Heart Rate Present A 156 Present Fetus Movement A Yes Comments doing well, passed sugar deniz t, active babyno new issues. Flowsheet Date 12/27/2021 Mcpherson Score Blood Edema Fundus Height Fundus Units Glucose Ketones Leukocytes Nitrite Labor Signs Protein Cervic Dilation Cervic Effacement Cervic Station none 31 cm none neg Type Weight in lbs Pre/Post Dialysis Refused With clothes 210.053074356665 BP Diastolic BP Location Tested BP Systolic BP Type 86 132 sitting Fetus Heart Rate Present A 144 Present Fetus Movement A Yes Comments doing well, no new issuesgoo d spiritsdiscussed raisins for constipation also correctol if emergency Flowsheet Date 01/11/2022 Mcpherson Score Blood Edema Fundus Height Fundus Units Glucose Ketones Leukocytes Nitrite Labor Signs Protein Cervic Dilation Cervic Effacement Cervic Station none 32.5 cm Type Weight in lbs Pre/Post Dialysis Refused With clothes 220.738103624070 BP Diastolic BP Location Tested BP Systolic BP Type 84 132 sitting Fetus Heart Rate Present A 145 Present Fetus Movement A Yes Comments GBS done today, no TDAP avai lable in officeactive babylabor precautions Flowsheet Date 01/17/2022 Mcpherson Score Blood Edema Fundus Height Fundus Units Glucose Ketones Leukocytes Nitrite Labor Signs Protein Cervic Dilation Cervic Effacement Cervic Station none 34 cm none neg Type Weight in lbs Pre/Post Dialysis Refused With clothes 222.05537969056 BP Diastolic BP Location Tested BP Systolic BP Type 84 130 sitting Fetus Heart Rate Present A 148 Present Fetus Movement A Yes Comments doing well, plan cervix chec k at next visitlabor precautionson daily valtrexGBS + Flowsheet Date 01/23/2022 Mcpherson Score Blood Edema Fundus Height Fundus Units Glucose Ketones Leukocytes Nitrite Labor Signs Protein Cervic Dilation Cervic Effacement Cervic Station none 34 cm none neg 0cm 70% -3 Type Weight in lbs Pre/Post Dialysis Refused With clothes 226.768774978355 BP Diastolic BP Location Tested BP Systolic BP Type 88 144 sitting Fetus Heart Rate Present A 137 Present Fetus Movement A Yes Comments doing well, active baby, no real ctxcervix thinning, but just a FTlabor precautions, kick counts Flowsheet Date 02/07/2022 Mcpherson Score Blood Edema Fundus Height Fundus Units Glucose Ketones Leukocytes Nitrite Labor Signs Protein Cervic Dilation Cervic Effacement Cervic Station none 36 cm none neg 2cm 60% -3 Type Weight in lbs Pre/Post Dialysis Refused With clothes 229.298589661983 BP Diastolic BP Location Tested BP Systolic BP Type 92 134 sitting Fetus Heart Rate Present A 145 Present Fetus Movement A Yes Comments 39 weeks doing wellplan aiden ction Sunday with favorable cervixlabor precautions Flowsheet Date 02/28/2022 Mcpherson Score Blood Edema Fundus Height Fundus Units Glucose Ketones Leukocytes Nitrite Labor Signs Protein Cervic Dilation Cervic Effacement Cervic Station Type Weight in lbs Pre/Post Dialysis Refused With clothes 201.570578250017 BP Diastolic BP Location Tested BP Systolic BP Type 78 126 sitting Fetus Heart Rate Present Fetus Movement Comments Menstrual History Last Menstrual Date Menses Monthly On Bcp Conception Prior Menses Frequency Hcg Plus Date Menarche Onset Age 1105/07/2021 true false 13 Genetic Screening And Infection History Question Response Note Patient's Age Will Be 35 Years Or Older At Estim ated Date of Delivery false Thalassemia (Omani, Malian, Mediterranean, Or Background): MCV < 80 false Neural Tube Defect (Meningomyelocele, Spina Bifi da, Or Anencephaly) false Congenital Heart Defect false Down Syndrome false Maciel-Sachs (eg, Samaritan, Cajun, [place] Citizen) f alse Robert Disease false Sickle Cell Disease Or Trait () false Hemophilia Or Other Blood Disorders false Muscular Dystrophy false Cystic Fibrosis false Bradford's Chorea false Mental Retardation/Autism false If Yes, Was Person Tested For Fragile X? false Other Inherited Genetic Or Chromosomal Disorder false Maternal Metabolic Disorder (eg, Type 1 Diabetes , PKU) false Patient Or Baby's Father Had A Child With Defects Not Listed Above false Recurrent Loss, Or A Stillbirth false Medications (including Suppl ements, Vitamins, Herbs, OTC Drugs), Illicit/Recreational Drugs, Alcohol false If Yes, Agent(s) And Strength/Dosage false Any Other Genetic History false Live With Someone With TB Or Exposed To TB false Patient Or Partner Has History Of Genital Herpes false Rash Or Viral Illness Since Last Menstrual Perio d false History Of STD, Gonorrhea, Chlamydia, HPV, Syphi lis false Other Infection History false History of HIV false History of Hepatitis false Prior GBS-infected child false Delivery Information Delivery Date Delivery Type Labor Anesthesia Weeks Gestation Incision Type Labor Labor Length Hrs Delivered By Post Complications Tubal Sterilization Discharge Date Comments 2 [facility] 40.2 false DrSauer (o/c) Discharge Information Feeding Method Contraceptive Method Maternal HG B and HCT Levels Breast
[2025-01-06] MEDS: LACTATED RINGERS 1,000 ML 30 ML IV CONT (07:50)
[2025-01-06] MEDS: ACETAMINOPHEN 500 MG TABLET 1000 MG PO (08:03)
[2025-01-06] MEDS: KETOROLAC 15 MG/ML VIAL (*BKC) IV PUSH (08:03)
[2025-01-06 08:26] LABS: BEDSIDEPREGUCG Negative (Negative)
--- NOTE | 2025-01-06 08:53 | WPDANESEPPF ---
Anes - Initial Pre Proc Eval Procedure: Operation Date: 01/06/25 09:30 Proposed Procedures p Laparoscopic Bilateral Salpingectomy - Collins Levi MD Date/Time: 01/06/25 08:53 Surgeon: Collins Levi MD Pre Op Diagnosis: desires sterilization Patient Data Age: 29 Gender: F Height: 1.6 m Weight: 91 kg Last Vital Signs Temp 36.6 C 01/06/25 07:10 Pulse 91 01/06/25 07:10 Resp 18 01/06/25 07:10 BP 130/79 01/06/25 07:10 Pulse Ox 98 01/06/25 07:10 O2 Del Method Room Air 01/06/25 07:10 Allergies Allergy/AdvReac Type Severity Reaction Status Date / Time No Known Allergies Allergy Verified 01/06/25 08:15 Home Medications ?Medication ?Instructions ?Recorded ?Confirmed ?Type Lactobacillus acidophilus 10 100 mmu cells PO DAILY 12/30/24 12/30/24 History billion cell capsule (Probacap) acyclovir 400 mg tablet 400 mg PO BID 12/30/24 01/06/25 History albuterol sulfate 90 mcg/actuation 2 inh inhalation PRN WHEEZING 12/30/24 12/30/24 History aerosol inhaler drospirenone (contraceptive) 4 mg 1 tablet PO HS 12/30/24 01/06/25 History (28) tablet (Slynd) inulin 2 gram chewable tablet 2 g PO DAILY 12/30/24 12/30/24 History (Prebiotic Fiber) semaglutide 2.5 mg/mL subcutaneous 40 mg subcut WEEKLY 12/30/24 01/06/25 History solution sertraline 50 mg tablet 50 mg PO HS 12/30/24 12/30/24 History Laboratory Tests 01/06/25 07:20 POC Urine HCG, Qual Negative (Negative) Patient hx anesthesia problems: none Family hx anesthesia problems: none Results Review: All pre-operative results and documents have been reviewed as part of the pre-operative evaluation. [facility] Past Medical History Medical History (Updated 01/06/25 @ 08:53 by Jaciel Fontanez MD) Anxiety Asthma Social History Social History Smoking packs per day: 1.5 Smoking cigarettes per day: 30.0 Years smoked: 4 Smoking pack-years: 6.00 Additional smoking assessment comments: QUIT 2020 Alcohol intake: former Living arrangements: with family Pietro Ballard Final PreProcedure Day of Procedure 01/06/25 08:53 Patient weight: obese Heart: regular rate and rhythm Lungs: clear to auscultation Airway: Mallampati scale class II Neurological: alert and oriented Last oral intake: >/= 8 hours ASA classification: II Emergent: no Anesthetic plan: proceed Anesthesia type and monitoring: general ETT and standard monitoring Results Review: All pre-operative results and documents have been reviewed as part of the pre-operative evaluation. Informed Consent: The patient's anesthetic plan and its attendant risks and benefits were discussed with the patient/family/POA. Questions were solicited and answers provided to the satisfaction of the patient/family/POA.
--- NOTE | 2025-01-06 09:05 | PM.IMHP ---
H&P: HPI History of Present Illness Date/Time: 01/06/25 09:05 Chief Complaint: Unwanted fertility Narrative: This patient is 29-year-old female who desires female sterilization. We have agreed to perform laparoscopic bilateral salpingectomy. She understands risks, benefits, and alternatives. She has completed informed consent process is ready to proceed. The patient understands the details of the procedure. The procedure has been explained in detail. She understands the risks. She understands that injuries may occur that result in hospitalization, more surgery, and severe illness. She understands risk of hemorrhage and infection. She denies any chest pain or shortness of breath. She denies any nausea, vomiting, fever, chills. Review of Systems Review of Systems: All systems reviewed & are unremarkable except as noted in HPI and below Constitutional: Constitutional: Denies chills, Denies fatigue, Denies fever(s) and Denies weakness Eyes: Eyes: Denies blurry vision, Denies change in vision, Denies loss of peripheral vision, Denies loss of vision, Denies other visual disturbances and Denies eye pain ENT: Denies vertigo, Denies dizziness, Denies hearing loss, Denies mouth pain, Denies nasal obstruction, Denies neck mass and Denies neck pain Cardiovascular: Cardiovascular: Denies chest pain, Denies diaphoresis, Denies syncope, Denies leg edema and Denies dyspnea Respiratory: Respiratory: Denies chest congestion, Denies cough, Denies hemoptysis, Denies dyspnea and Denies wheezing Gastrointestinal: Gastrointestinal: Denies abdominal pain, Denies constipation, Denies diarrhea, Denies nausea and Denies vomiting Genitourinary: Genitourinary: Denies hematuria, Denies change in libido, Denies nocturia, Denies genital lesions, Denies flank pain and Denies urinary urgency Musculoskeletal: Musculoskeletal: Denies abnormal gait, Denies back pain, Denies myalgias, Denies arthralgias, Denies joint swelling, Denies muscle weakness and Denies neck pain Integumentary/Breasts: Skin/Breast: Denies swelling, Denies breast pain, Denies breast mass, Denies dry skin, Denies nipple discharge, Denies unusual bruising and Denies jaundice Neurologic: Denies Neuro-related abnormal movements, Denies Abnormal speech present, Denies abnormal gait, Denies behavioral changes, Denies confusion, Denies vertigo, Denies dizziness, Denies syncope, Denies loss of vision, Denies memory loss, Denies convulsions and Denies weakness Psychiatric: Psychiatric: Denies abnormal sleep pattern, Denies behavioral changes, Denies change in libido, Denies confusion, Denies depression, Denies anhedonia and Denies memory loss Endocrine: Endocrine: Reports no additional endocrine complaints, Denies change in libido and Denies fatigue Hematologic/Lymphatic: Hematologic/Lymphatic: Reports no additional hematologic/lymphatic complaints Allergic/Immunologic: Allergic/Immunologic: Reports no additional allergic/immunologic complaints and Denies wheezing [facility] Past Medical History Medical History (Updated 01/06/25 @ 09:06 by Collins Levi MD) Anxiety Asthma Social History Social History Smoking packs per day: 1.5 Smoking cigarettes per day: 30.0 Years smoked: 4 Smoking pack-years: 6.00 Additional smoking assessment comments: QUIT 2020 Alcohol intake: former Living arrangements: with family Meds Home Medications and Allergies Home Medications ?Medication ?Instructions ?Recorded ?Confirmed ?Type Lactobacillus acidophilus 10 100 mmu cells PO DAILY 12/30/24 12/30/24 History billion cell capsule (Probacap) acyclovir 400 mg tablet 400 mg PO BID 12/30/24 01/06/25 History albuterol sulfate 90 mcg/actuation 2 inh inhalation PRN WHEEZING 12/30/24 12/30/24 History aerosol inhaler drospirenone (contraceptive) 4 mg 1 tablet PO HS 12/30/24 01/06/25 History (28) tablet (Slynd) inulin 2 gram chewable tablet 2 g PO DAILY 12/30/24 12/30/24 History (Prebiotic Fiber) semaglutide 2.5 mg/mL subcutaneous 40 mg subcut WEEKLY 12/30/24 01/06/25 History solution sertraline 50 mg tablet 50 mg PO HS 12/30/24 12/30/24 History Allergies Allergy/AdvReac Type Severity Reaction Status Date / Time No Known Allergies Allergy Verified 01/06/25 08:15 Vital Signs Vital Signs - 24 hr 01/06/25 07:10 Temperature 97.8 F Pulse Rate 91 Respiratory Rate 18 Blood Pressure 130/79 Pulse Oximetry 98 Oxygen Delivery Room Air Exam Const: General: cooperative, healthy appearing, comfortable and no acute distress Orientation/consciousness: oriented to person, oriented to place and oriented to time HENMT: Head: normal to inspection Ears: external ears normal Face/Nose/Sinus: Normal external nose present and normal facial exam Face and sinus: normal facial exam Eyes: General: appearance normal, both eyes and all related structures Neck: Neck: normal visual inspection, trachea midline and supple Resp: Auscultation: clear to auscultation bilaterally, no crackles, no rales, no rhonchi and no wheezes Cardio: Rate: regular rate Rhythm: regular rhythm Heart sounds: no click, no murmurs and no rubs GI: GI Palp: No abdominal tenderness, No Soft to palpation, No Tenderness to palpation present (GI) and No Palpable mass present Auscultation: normal bowel sounds Skin: General skin exam: normal color and no rashes or lesions noted Neuro: General: oriented to person, oriented to place and oriented to time Extrem: General: normal to inspection, no joint enlargement, no clubbing, cyanosis or edema, no pedal edema and no calf tenderness Psych: Appearance: grossly normal Mental Status: mental status grossly normal Speech and movement: Normal speech and movement present Assessment and Plan Assessment and plan (1) Unwanted fertility: Code(s): Z30.09 - Encounter for other general counseling and advice on contraception Status: Acute Plan This patient is 29-year-old female who desires female sterilization. We have agreed to perform laparoscopic bilateral salpingectomy. She understands risks, benefits, and alternatives. She has completed informed consent process is ready to proceed.
--- NOTE | 2025-01-06 09:06 | WPDHPUPDATE1 ---
History and Physical Update Update Date/Time: 01/06/25 09:06 History and Physical has been reviewed, including an updated exam of the patient. There are NO changes in the patient's condition. Risks, benefits, and alternatives have been discussed and questions answered. Patient agrees to proceed with procedure.
--- NOTE | 2025-01-06 09:49 | S_PTH ---
PATIENT: Alley Nicholas LOC: [facility] U#:[id number] AGE/SX: 29/F ROOM: RE01/06/[address]: Collins Levi MD : 1995 BED: DIS: 01/06/2025 SPEC #: [id number] RECD: 01/06/25 10:46 STATUS: RAN REQ #: [id number] SHEMAR: 01/06/25 09:[address]: Collins Levi DEPT: [facility] Surgical RECD BY: Magdi Rojas Tissues: A - Fallopian Tube Bilateral Procedures: Gross and Microscopic Level 2 Hematoxylin and Eosin Stain
--- NOTE | 2025-01-06 10:01 | P.OP_ITS ---
Procedure Note - Detailed Date of Procedure 01/06/25 Pre-op Diagnosis desires sterilization Post-op Diagnosis Same Procedure Performed Laparoscopic bilateral salpingectomy Surgeon Collins Levi MD Anesthesia General Indications Unwanted fertility Findings Normal pelvic anatomy Description of Procedure The patient was taken the operating room. She was prepped and draped in the dorsal lithotomy position after induction of general anesthesia. A 5 mm skin incision was made in the left upper quadrant of the abdominal skin. A 5 mm trocar was inserted the intra-abdominal cavity under direct visualization of the scope. Pneumoperitoneum was achieved. A 5 mm trocar was inserted in the left lower quadrant identical fashion. A 5 mm infraumbilical trocar was inserted in identical fashion as well. The bilateral fallopian tubes were removed. This was done by using a LigaSure cautery. The mesosalpinx adjacent to the tube was cauterized transected with LigaSure. This was initiated in the area the ovary and in a stepwise fashion moved medially to the area of the cornu of the uterus. Once there the fallopian tube was cauterized and transected. This was done in identical fashion on each side. The fallopian tubes were taken out through the left lower quadrant trocar site. The pneumoperitoneum was reduced. The trocars removed. The skin was closed with subcuticular 4 Monocryl and covered with D ermabond. She was taken to cover stable condition. Sponge lap and needle counts were correct x2. Estimated Blood Loss 5 Drains No Packing No Pathology Yes Complications No immediate complications Condition Stable Disposition PACU
[2025-01-06] MEDS: oxyCODONE HCL (*CRX) 5 MG TAB IR PO (10:55)
== END 2025-01-06 11:30 | disposition home or self-care (01) ==
PROVIDERS: Visit Provider Obstetrics & Gynecology
PROC: (CPT 49320; principal; 2025-01-06 09:30)
DX: Z30.2 Encounter for sterilization (principal); G89.18 Other acute postprocedural pain; J45.909 Unspecified asthma, uncomplicated; F41.9 Anxiety disorder, unspecified; E66.9 Obesity, unspecified; Z68.35 Body mass index [BMI] 35.0-35.9, adult; Z79.51 Long term (current) use of inhaled steroids; Z79.4 Long term (current) use of insulin; Z79.85 Long-term (current) use of injectable non-insulin antidiabetic drugs; Z87.891 Personal history of nicotine dependence
CPT/HCPCS: 58661; 88302; A9270; J0330; J1100; J1885; J2003; J2250; J2405; J2704; J3010; J7120